=== PATIENT | female | born 1960 | race Caucasian/White ===

== ENCOUNTER 2017-06-23 13:28 | Inpatient (IN) | payer OTHER ==
--- NOTE | 2017-06-23 13:51 | Emergency Department Report ---
Chief Complaint: Hyperglycemia Stated Complaint: INFECTED FOOT/HYPERTENSION - HPI History of Present Illness: This is a 56-year-old female nontoxic, well nourished in appearance, no acute signs of distress presents to the ED with c/o of right foot pain and fourth phalanx pain. Patient states has history of diabetes uncontrolled. Patient with her primary care doctor sent her to emergency room for possible admission. Patient denies any numbness, tingling, fever, chills, nausea, vomiting, chest pain shortness of breath. - Exam Vital Signs: Vital Signs 06/23/17 13:34 Temperature 97.5 F L Pulse Rate 102 H Respiratory 18 Rate Blood Pressure 197/109 O2 Sat by Pulse 98 Oximetry Physical Exam: GENERAL: The patient is a well-developed, well-nourished female in no apparent distress. Patient is alert and acting appropriately for age. Alert and oriented 3, no apparent distress, normal gait, atraumatic. EXTREMITIES: Without any cyanosis, clubbing, rash, lesions or edema. Peripheral pulses are diminished. Capillary refill less than 2 seconds. Full range of motion bilaterally. Erythema with swelling of right foot. Phalanx swelling, induration, fluctuance, with discoloration. MSE screening note: Focused history and physical exam performed. Due to findings the following was ordered: 1- This initial assessment/diagnostic orders/clinical plan/ treatment(s) is/are subject to change based on pt's health status, clinical progression and re- assessment by fellow clinical providers in the ED. Further treatment and workup at subsequent clinical provers discretion. Patient/guardians urged not to elope from ED as their condition may be serious if not clinically assessed and managed. 2-CBC, CMP, UA, LACTIC ACID, CK, LONI PH ED Disposition for MSE Condition: Stable
[2017-06-23 14:40] LABS: Hematocrit 39.2 % (30.3-42.9); Hemoglobin 12.8 gm/dl (10.1-14.3); Mean Corpuscular Hemoglobin 27 pg (28-32); Mean Corpuscular Volume 82 fl (79-97); Red Blood Count 4.81 M/mm3 (3.65-5.03); White Blood Count 17.7 K/mm3 (4.5-11.0)
[2017-06-23 14:41] LABS: Basophils % (Auto) 1.2 % (0.0-1.8); Eosinophils % (Auto) 0.7 % (0.0-4.3); Mean Corpuscular HGB Conc 33 % (30-34); Platelet Count 596 K/mm3 (140-440); Red Cell Distribution Width 14.8 % (13.2-15.2)
--- NOTE | 2017-06-23 15:21 | XRay Report ---
X-RAY LEFT FOOT THREE VIEWS: 06/23/17 13:52:00 CLINICAL: Pain and swelling. FINDINGS: No fracture or dislocation. The joint spaces are normal. A prominent plantar calcaneal spur. Moderate soft tissue swelling of the forefoot and midfoot. No soft tissue air or foreign body. Vascular calcifications. IMPRESSION: Nonspecific soft tissue swelling. No fracture or dislocation. No signs of arthritis. Plantar enthesopathy.
[2017-06-23 17:44] LABS: Albumin 2.8 g/dL (3.9-5); Albumin/Globulin Ratio 0.5 %; Alkaline Phosphatase 140 units/L (35-129); BUN/Creatinine Ratio 38; Blood Urea Nitrogen 23 mg/dL (7-17); Calcium 9.2 mg/dL (8.4-10.2); Carbon Dioxide 15 mmol/L (22-30); Chloride 85.9 mmol/L (98-107); Creatine Kinase 88 units/L (30-135); Glucose 422 mg/dL (65-100); Sodium 123 mmol/L (137-145); Total Protein 8.1 g/dL (6.3-8.2)
[2017-06-23 17:58] LABS: Alanine Aminotransferase 16 units/L (7-56); Anion Gap 27 mmol/L
[2017-06-23] MEDS ORDERED: ZOSYN/NS 4.5GM/100ML 4.5 GM/100 ML VIAL IV ONE (21:53)
[2017-06-23] MEDS ORDERED: NACL 0.9% 1000 ML IV ONE (21:53)
[2017-06-23] MEDS ORDERED: VANCOMYCIN VIAL IV ONE (21:54)
[2017-06-23] MEDS ORDERED: D50W (25GM) Syringe IV PRN ×3 (21:55→23:54)
--- NOTE | 2017-06-23 21:56 | Emergency Department Report ---
ED General Adult HPI - General Chief complaint: Hyperglycemia Stated complaint: INFECTED FOOT/HYPERTENSION Time Seen by Provider: 06/23/17 21:46 Source: patient, family, RN notes reviewed Mode of arrival: Stretcher Limitations: No Limitations, Physical Limitation - History of Present Illness Initial comments: This is a 56-year-old female who is previously unknown to this provider. Her primary care doctor is Jose David Montanez. Patient has a past medical history of diabetes. She is sent to the ER by her primary care doctor out of concern for hyperglycemia, possible diabetic ketoacidosis, and left lower extremity for infection. Patient reports discoloration and pain in her left foot for the past 2 days. She also describes swelling, chills, generalized weakness. Her symptoms are constant. They do not have exacerbating or relieving factors. The patient denies headache , neck pain, chest pain, abdominal pain, shortness of breath, urinary symptoms. She denies trauma. The pain is sharp. It increases with palpation and range of motion. It decreases with rest. It does not radiate anywhere. -: Gradual, days(s) Location: left, lower extremity Quality: aching Consistency: intermittent Improves with: rest Worsens with: movement Associated Symptoms: fever/chills, malaise, weakness - Related Data Home Medications Medication Instructions Recorded Confirmed Last Taken Enalapril Maleate [Vasotec] 10 mg PO QDAY 10/15/13 06/23/17 10/15/13 Gabapentin 300 mg PO QHS 10/15/13 06/23/17 10/15/13 glipiZIDE [Glucotrol] 5 mg PO DAILY 10/15/13 06/23/17 10/15/13 metFORMIN [Glucophage] 500 mg PO BID 10/15/13 06/23/17 10/15/13 Escitalopram Oxalate [Lexapro] 5 mg PO QDAY 06/23/17 06/23/17 Unknown Allergies Allergy/AdvReac Type Severity Reaction Status Date / Time No Known Allergies Allergy Verified 06/23/17 13:34 ED Review of Systems ROS: Stated complaint: INFECTED FOOT/HYPERTENSION Other details as noted in HPI Constitutional: chills, malaise, weakness Eyes: denies: eye discharge ENT: denies: epistaxis Respiratory: denies: cough Cardiovascular: denies: chest pain Gastrointestinal: denies: abdominal pain Genitourinary: denies: dysuria Musculoskeletal: arthralgia, myalgia Skin: lesions Neurological: weakness ED Past Medical Hx - Past Medical History Hx Hypertension: Yes Hx Diabetes: Yes - Surgical History Additional Surgical History: - Social History Smoking Status: Never Smoker Substance Use Type: None - Medications Home Medications: Home Medications Medication Instructions Recorded Confirmed Last Taken Type Enalapril Maleate [Vasotec] 10 mg PO QDAY 10/15/13 06/23/17 10/15/13 History Gabapentin 300 mg PO QHS 10/15/13 06/23/17 10/15/13 History glipiZIDE [Glucotrol] 5 mg PO DAILY 10/15/13 06/23/17 10/15/13 History metFORMIN [Glucophage] 500 mg PO BID 10/15/13 06/23/17 10/15/13 History Escitalopram Oxalate [Lexapro] 5 mg PO QDAY 06/23/17 06/23/17 Unknown History ED Physical Exam - General Limitations: No Limitations General appearance: alert, in no apparent distress - Head Head exam: Present: atraumatic, normocephalic - Eye Eye exam: Present: normal appearance, EOMI. Absent: nystagmus - ENT ENT exam: Present: normal exam, normal orophraynx, mucous membranes moist, normal external ear exam - Neck Neck exam: Present: normal inspection, full ROM - Respiratory Respiratory exam: Present: normal lung sounds bilaterally. Absent: respiratory distress - Cardiovascular Cardiovascular Exam: Present: normal rhythm, tachycardia, normal heart sounds. Absent: systolic murmur, diastolic murmur, rubs, gallop - GI/Abdominal GI/Abdominal exam: Present: soft, normal bowel sounds. Absent: distended, tenderness, guarding, rebound, rigid, pulsatile mass - Extremities Exam Extremities exam: Present: full ROM, tenderness, normal capillary refill, pedal edema, calf tenderness, other (there is discoloration to the left dorsal and distal aspects of the left foot, the fourth toe appears to be discolored and necrotic, compartments are soft, there is erythema and warmth to the left lower extremity, there is no pain with passive range of motion of the great toe. The pelvis is stable. There is no joint instability. Discoloration noted on the bilateral lower extremities, more prominent in the left foot.) - Back Exam Back exam: Present: normal inspection, full ROM. Absent: paraspinal tenderness , vertebral tenderness - Neurological Exam Neurological exam: Present: alert, other (Extraocular movements intact. Tongue midline. No facial droop. Facial sensation intact to light touch in the V1, V2 , V3 distribution bilaterally. 5 and 5 strength in 4 extremities.. Sensation is intact to light touch in 4 extremities.). Absent: motor sensory deficit - Psychiatric Psychiatric exam: Present: anxious - Skin Skin exam: Present: warm, rash, erythema ED Course Vital Signs 06/23/17 06/23/17 06/23/17 13:34 23:00 23:25 Temperature 97.5 F L 97.6 F Pulse Rate 102 H Respiratory 18 Rate Blood Pressure 197/109 156/88 O2 Sat by Pulse 98 97 Oximetry 06/23/17 06/24/17 06/24/17 23:46 00:36 01:00 Temperature Pulse Rate 88 89 Respiratory 20 18 17 Rate Blood Pressure 108/57 O2 Sat by Pulse 97 96 Oximetry 06/24/17 02:00 Temperature Pulse Rate 88 Respiratory 14 Rate Blood Pressure 97/63 O2 Sat by Pulse 92 Oximetry - Reevaluation(s) Reevaluation #1: 06/23/17 23:51 Repeat laboratory studies demonstrated resolution of anion gap acidosis. Case presented to Dr. Sanchez who accepts the patient to the medical service. ED Medical Decision Making - Lab Data Result diagrams: 06/23/17 13:59 06/24/17 04:28 Vital Signs 06/23/17 13:34 Temperature 97.5 F L Pulse Rate 102 H Respiratory 18 Rate Blood Pressure 197/109 O2 Sat by Pulse 98 Oximetry Lab Results 06/23/17 06/23/17 06/23/17 Range/Units 13:36 13:59 13:59 WBC 17.7 H (4.5-11.0) K/mm3 RBC 4.81 (3.65-5.03) M/mm3 Hgb 12.8 (10.1-14.3) gm/dl Hct 39.2 (30.3-42.9) % MCV 82 (79-97) fl MCH 27 L (28-32) pg MCHC 33 (30-34) % RDW 14.8 (13.2-15.2) % Plt Count 596 H (140-440) K/mm3 Lymph % (Auto) 14.0 (13.4-35.0) % [place] % (Auto) 4.5 (0.0-7.3) % Eos % (Auto) 0.7 (0.0-4.3) % Baso % (Auto) 1.2 (0.0-1.8) % Lymph # 2.5 (1.2-5.4) K/mm3 [place] # 0.8 (0.0-0.8) K/mm3 Eos # 0.1 (0.0-0.4) K/mm3 Baso # 0.2 H (0.0-0.1) K/mm3 Seg Neutrophils % 79.6 H (40.0-70.0) % Seg Neutrophils # 14.1 H (1.8-7.7) K/mm3 VBG pH (7.320-7.420) Sodium 123 L (137-145) mmol/L Potassium 5.0 (3.6-5.0) mmol/L Chloride 85.9 L (98-107) mmol/L Carbon Dioxide 15 L (22-30) mmol/L Anion Gap 27 mmol/L BUN 23 H (7-17) mg/dL Creatinine 0.6 L (0.7-1.2) mg/dL Estimated GFR > 60 ml/min BUN/Creatinine Ratio 38 % Glucose 422 H (65-100) mg/dL POC Glucose 412 H (70-105) Lactic Acid (0.7-2.0) mmol/L Calcium 9.2 (8.4-10.2) mg/dL Total Bilirubin 0.20 (0.1-1.2) mg/dL AST 17 (5-40) units/L ALT 16 (7-56) units/L Alkaline Phosphatase 140 H (35-129) units/L Total Creatine Kinase 88 (30-135) units/L Total Protein 8.1 (6.3-8.2) g/dL Albumin 2.8 L (3.9-5) g/dL Albumin/Globulin Ratio 0.5 % 06/23/17 06/23/17 Range/Units 13:59 13:59 WBC (4.5-11.0) K/mm3 RBC (3.65-5.03) M/mm3 Hgb (10.1-14.3) gm/dl Hct (30.3-42.9) % MCV (79-97) fl MCH (28-32) pg MCHC (30-34) % RDW (13.2-15.2) % Plt Count (140-440) K/mm3 Lymph % (Auto) (13.4-35.0) % [place] % (Auto) (0.0-7.3) % Eos % (Auto) (0.0-4.3) % Baso % (Auto) (0.0-1.8) % Lymph # (1.2-5.4) K/mm3 [place] # (0.0-0.8) K/mm3 Eos # (0.0-0.4) K/mm3 Baso # (0.0-0.1) K/mm3 Seg Neutrophils % (40.0-70.0) % Seg Neutrophils # (1.8-7.7) K/mm3 VBG pH 7.338 (7.320-7.420) Sodium (137-145) mmol/L Potassium (3.6-5.0) mmol/L Chloride (98-107) mmol/L Carbon Dioxide (22-30) mmol/L Anion Gap mmol/L BUN (7-17) mg/dL Creatinine (0.7-1.2) mg/dL Estimated GFR ml/min BUN/Creatinine Ratio % Glucose (65-100) mg/dL POC Glucose (70-105) Lactic Acid 1.80 (0.7-2.0) mmol/L Calcium (8.4-10.2) mg/dL Total Bilirubin (0.1-1.2) mg/dL AST (5-40) units/L ALT (7-56) units/L Alkaline Phosphatase (35-129) units/L Total Creatine Kinase (30-135) units/L Total Protein (6.3-8.2) g/dL Albumin (3.9-5) g/dL Albumin/Globulin Ratio % - Radiology Data Radiology results: report reviewed, image reviewed X-ray of the foot negative for acute disease, soft tissue swelling is noted. X-ray of the tibia negative for acute disease. Soft tissue swelling is noted. - Medical Decision Making Differential diagnosis, including but not limited to: Cellulitis, osteomyelitis , myositis, diabetic ketoacidosis, hyperosmolar hyperglycemia Assessment and plan: 56-year-old female with tachycardia, leukocytosis, hyperglycemia, anion gap, suggestive of diabetic ketoacidosis, with superimposed soft tissue cellulitis. The patient is afebrile with reassuring vital signs, with the exception of hypertension and tachycardia. Given concern for active soft tissue infection, I will withhold antihypertensives at this time. Patient will be treated along with diabetic ketoacidosis pathway, with IV fluids, insulin push, insulin drip. She'll be treated along with sepsis pathway with broad-spectrum antibiotics, blood cultures, lactic acid, timeout to [place], and an appropriate 30 mL/kg bolus of IV fluids. The patient has equal pulses in the bilateral lower extremities, there is no obvious gas on her x-ray of her left foot, therefore I do not believe the patient requires an emergent surgical consult this evening. She will require medical admission for the aforementioned therapies were outlined, the hospital physician has been paged to arrange admission. Critical Care Time: Yes Critical care time in (mins) excluding proc time.: 35 Critical care attestation.: If time is entered above; I have spent that time in minutes in the direct care of this critically ill patient, excluding procedure time. ED Disposition Clinical Impression: Sepsis affecting skin, DKA (diabetic ketoacidoses) Disposition: OP ADMIT IP TO THIS HOSP Is pt being admited?: Yes Condition: Good
[2017-06-23] MEDS ORDERED: SODIUM CHLORIDE FLUSH SYRINGE 10 ML IV PRN (22:00)
[2017-06-23] MEDS ORDERED: D5W/0.45% NACL/KCL 20 MEQ 20 MEQ/1,000 ML BAG IV SCH (22:00)
[2017-06-23] MEDS ORDERED: VANCOMYCIN PHARMACY TO DOSE IV SCH (22:00)
[2017-06-23] MEDS ORDERED: NovoLIN R 100 UNITS in NACL 0.9% 99 ML IV SCH ×2 (22:00→23:45)
[2017-06-23] MEDS ORDERED: VANCOMYCIN/NS 1 GM/250 ML 1 GM/250 ML BAG IV ONE (22:30)
[2017-06-23 22:31] LABS: BUN/Creatinine Ratio 33; Blood Urea Nitrogen 23 mg/dL (7-17); Calcium 9.2 mg/dL (8.4-10.2); Carbon Dioxide 25 mmol/L (22-30); Chloride 90.6 mmol/L (98-107); Glucose 352 mg/dL (65-100); Potassium 4.6 mmol/L (3.6-5.0); Sodium 129 mmol/L (137-145)
[2017-06-23 22:32] LABS: Phosphorous 3.9 mg/dL (2.5-4.5)
[2017-06-23 22:35] LABS: C-Reactive Protein 9.2 mg/dL (0.00-1.30)
[2017-06-23 22:41] LABS: Anion Gap 18 mmol/L
[2017-06-23] MEDS ORDERED: MOTRIN PO ONE (23:35)
[2017-06-23] MEDS ORDERED: TYLENOL PO ONE (23:35)
--- NOTE | 2017-06-23 23:53 | History and Physical Report ---
History of Present Illness Chief complaint: My diabetes is high, and my foot is infected History of present illness: 56 YO Female with HTN, DM presents to ED for evaluation. Pt states that she has experienced very high blood glucose levels for the past 3 days. Pt also reports discoloration and pain in her left foot for the past 2 days. Pt also acknowledges Left foot swelling, redness, and pain with weight bearing, subjective fever, chills, generalized weakness. Pt was seen by her PCP and recommended that she present to ED for evaluation. The patient denies CP, palppitations, Trauma, headache, neck pain, abdominal pain, shortness of breath , hematuria, skin rashes, recent ill contacts. Pt seen and evaluated in ED and found to have DKA, with metabolic anion gap acidosis, as well a sepsis secondary to Left foot cellulitis. Pt treated with insulin therapy as well as sepsis protocol, and admitted to ICU. Pt symptoms improved with therapy, and anion gap normalized with therapy. Pt subsequently downgraded from ICU to medical floor. Past History Past Medical History: diabetes, hypertension Past Surgical History: Social history: , lives with family. denies: smoking, alcohol abuse, prescription drug abuse, IV drug use Family history: diabetes, hypertension Medications and Allergies Allergies Allergy/AdvReac Type Severity Reaction Status Date / Time No Known Allergies Allergy Verified 06/23/17 13:34 Home Medications Medication Instructions Recorded Confirmed Last Taken Type Enalapril Maleate [Vasotec] 10 mg PO QDAY 10/15/13 06/23/17 10/15/13 History Gabapentin 300 mg PO QHS 10/15/13 06/23/17 10/15/13 History glipiZIDE [Glucotrol] 5 mg PO DAILY 10/15/13 06/23/17 10/15/13 History metFORMIN [Glucophage] 500 mg PO BID 10/15/13 06/23/17 10/15/13 History Escitalopram Oxalate [Lexapro] 5 mg PO QDAY 06/23/17 06/23/17 Unknown History Active Meds: Active Medications Vancomycin HCl (Vancomycin/Ns 1 Gm/250 Ml) 1 gm in 250 mls @ 167.007 mls/hr IV ONCE.ED ONE Stop: 06/23/17 23:59 Last Admin: 06/23/17 23:20 Dose: 167.007 mls/hr Vancomycin HCl (Vancomycin Pharmacy To Dose) 1 each IV PKCONSULT SYLVIA PRN Reason: Protocol Review of Systems Constitutional: fever, chills, no weight loss, no weight gain, no sweats, no night sweats Ears, nose, mouth and throat: no ear pain, no ear discharge, no tinnitis, no decreased hearing, no nose pain, no nasal congestion, no nasal discharge Breasts: no change in shape, no swelling, no mass Cardiovascular: no chest pain, no orthopnea, no palpitations, no rapid/ irregular heart beat, no edema, no syncope, no lightheadedness Respiratory: no cough, no cough with sputum, no excessive sputum, no hemoptysis , no shortness of breath, no dyspnea on exertion Gastrointestinal: no abdominal pain, no nausea, no vomiting, no diarrhea, no constipation, no change in bowel habits Genitourinary Female: no pelvic pain, no flank pain, no menorrhagia, no dysuria , no urinary frequency, no urgency Rectal: no pain, no incontinence, no bleeding Musculoskeletal: no neck stiffness, no neck pain, no shooting arm pain, no arm numbness/tingling, no low back pain, no shooting leg pain, no leg numbness/ tingling Integumentary: no rash, no pruritis, no redness, no sores, no wounds, no jaundice Neurological: no head injury, no transient paralysis, no paralysis, no weakness , no parathesias, no numbness, no tingling Psychiatric: no anxiety, no memory loss, no change in sleep habits, no sleep disturbances, no insomnia, no hypersomnia, no change in appetite, no change in libido Endocrine: no cold intolerance, no heat intolerance, no polyphagia, no excessive thirst, no polydipsia, no polyuria, no nocturia Hematologic/Lymphatic: no easy bruising, no easy bleeding Allergic/Immunologic: no urticaria, no allergic rhinitis, no wheezing Exam - Constitutional Vitals: Temp Pulse Resp BP Pulse Ox 97.6 F 102 H 20 156/88 97 06/23/17 23:25 06/23/17 13:34 06/23/17 23:46 06/23/17 23:00 06/23/17 23:00 General appearance: Present: mild distress - EENT Eyes: Present: PERRL ENT: hearing intact, clear oral mucosa - Neck Neck: Present: supple, normal ROM - Respiratory Respiratory effort: normal Respiratory: bilateral: CTA - Cardiovascular Heart Sounds: Present: S1 & S2. Absent: rub, click - Extremities Extremities: No edema, abnormal Extremity abnormal: edema, cyanosis, ulceration, erythema, tenderness (Left foot ) Peripheral Pulses: within normal limits - Abdominal General gastrointestinal: Present: soft, non-tender, non-distended, normal bowel sounds Female genitourinary: Present: normal - Integumentary Integumentary: Present: clear, warm, dry - Musculoskeletal Musculoskeletal: gait normal, strength equal bilaterally - Psychiatric Psychiatric: appropriate mood/affect, intact judgment & insight - Neurologic Neurologic: CNII-XII intact, moves all extremities Results - Labs CBC & Chem 7: 06/23/17 13:59 06/23/17 21:59 Labs: Abnormal lab results 06/23/17 06/23/17 06/23/17 Range/Units 13:36 13:59 13:59 WBC 17.7 H (4.5-11.0) K/mm3 MCH 27 L (28-32) pg Plt Count 596 H (140-440) K/mm3 Baso # 0.2 H (0.0-0.1) K/mm3 Seg Neutrophils % 79.6 H (40.0-70.0) % Seg Neutrophils # 14.1 H (1.8-7.7) K/mm3 Sodium 123 L (137-145) mmol/L Chloride 85.9 L (98-107) mmol/L Carbon Dioxide 15 L (22-30) mmol/L BUN 23 H (7-17) mg/dL Creatinine 0.6 L (0.7-1.2) mg/dL Glucose 422 H (65-100) mg/dL POC Glucose 412 H (70-105) Alkaline Phosphatase 140 H (35-129) units/L C-Reactive Protein (0.00-1.30) mg/dL Albumin 2.8 L (3.9-5) g/dL 06/23/17 06/23/17 Range/Units 21:59 21:59 WBC (4.5-11.0) K/mm3 MCH (28-32) pg Plt Count (140-440) K/mm3 Baso # (0.0-0.1) K/mm3 Seg Neutrophils % (40.0-70.0) % Seg Neutrophils # (1.8-7.7) K/mm3 Sodium 129 L (137-145) mmol/L Chloride 90.6 L (98-107) mmol/L Carbon Dioxide (22-30) mmol/L BUN 23 H (7-17) mg/dL Creatinine (0.7-1.2) mg/dL Glucose 352 H (65-100) mg/dL POC Glucose (70-105) Alkaline Phosphatase (35-129) units/L C-Reactive Protein 9.20 H (0.00-1.30) mg/dL Albumin (3.9-5) g/dL Assessment and Plan - Patient Problems (1) Sepsis Current Visit: Yes Status: Acute Qualifiers: Sepsis type: sepsis due to unspecified organism Qualified Code(s): A41.9 - Sepsis, unspecified organism Plan to address problem: Sepsis protocol: IV abx, IVF, blood cultures, urinalysis, wound culture, monitor uop q shift, serial lactic acid levels. (2) Accelerated hypertension Current Visit: Yes Status: Acute Plan to address problem: monitor bp q shift, resume medical management, IV hydralazine for systolic above 155. (3) Cellulitis of left foot Current Visit: Yes Status: Acute Plan to address problem: IV abx, IVF, supportive care. (4) Metabolic acidosis Current Visit: Yes Status: Acute Plan to address problem: Treat sepsis, supportive care, IVF, (5) DKA (diabetic ketoacidoses) Current Visit: Yes Status: Acute Plan to address problem: DKA protocol: Insulin, ADA diet, accu check, treat cellulitis, monitor anion gap , serial bmp, (6) DVT prophylaxis Current Visit: Yes Status: Acute
[2017-06-23] MEDS ORDERED: DULCOLAX PR PRN (23:54)
[2017-06-23] MEDS ORDERED: ALUM-MAG HYDROX-SIMETH 200-200-20MG/5ML PO PRN (23:54)
[2017-06-23] MEDS ORDERED: NovoLIN R 100 UNITS in NACL 0.9% 99 ML IV ONE (23:54)
[2017-06-23] MEDS ORDERED: DILAUDID IV PRN (23:54)
[2017-06-23] MEDS ORDERED: PROVENTIL IH PRN (23:54)
[2017-06-23] MEDS ORDERED: MILK OF MAGNESIA PO PRN (23:54)
--- NOTE | 2017-06-24 00:11 | XRay Report ---
FINAL REPORT EXAM: XR TIBIA FIBULA 2V LT HISTORY: left foot pain TECHNIQUE: AP and lateral views of the left tibia-fibula were obtained. FINDINGS: There are no skeletal or soft tissue abnormalities. IMPRESSION: Within normal limits.
[2017-06-24 01:14] LABS: Bacteria,Urine 4+ /HPF (Negative); Bilirubin,Urine NEG (Negative); Blood,Urine SM (Negative); Ketones,Urine NEG (Negative); Leukocyte Esterase,Urine NEG (Negative); Mucus,Urine FEW /HPF; Nitrite,Urine NEG (Negative); Urobilinogen,Urine < 2.0 mg/dL (<2.0)
[2017-06-24 01:21] LABS: Protein,Urine >500 mg/dL (Negative)
[2017-06-24 01:40] LABS: Anion Gap 15 mmol/L; BUN/Creatinine Ratio 38; Blood Urea Nitrogen 19 mg/dL (7-17); Calcium 7.7 mg/dL (8.4-10.2); Carbon Dioxide 22 mmol/L (22-30); Chloride 99.2 mmol/L (98-107); Glucose 184 mg/dL (65-100); Potassium 3.3 mmol/L (3.6-5.0); Sodium 133 mmol/L (137-145)
[2017-06-24 01:41] LABS: Anion Gap 16 mmol/L; BUN/Creatinine Ratio 32; Blood Urea Nitrogen 19 mg/dL (7-17); Calcium 7.7 mg/dL (8.4-10.2); Carbon Dioxide 22 mmol/L (22-30); Chloride 99.6 mmol/L (98-107); Glucose 182 mg/dL (65-100); Potassium 3.3 mmol/L (3.6-5.0); Sodium 134 mmol/L (137-145)
[2017-06-24 05:27] LABS: Anion Gap 18 mmol/L; BUN/Creatinine Ratio 32; Blood Urea Nitrogen 19 mg/dL (7-17); Calcium 8.1 mg/dL (8.4-10.2); Carbon Dioxide 22 mmol/L (22-30); Chloride 98.8 mmol/L (98-107); Glucose 161 mg/dL (65-100); Potassium 4.1 mmol/L (3.6-5.0); Sodium 135 mmol/L (137-145)
[2017-06-24] MEDS: ZOSYN/NS 4.5GM/100ML 4.5 GM/100 ML VIAL IV SCH ×3 (08:00→22:57)
--- NOTE | 2017-06-24 08:18 | Progress Note ---
Assessment and Plan Assessment and plan: 56 YO Female with HTN, DM presents to ED for evaluation. She has a history of picking off, plucking of her toenails. She's had previous infections in her right foot., She admits that she stopped of all the toenails in her left foot. And over the course of 2 weeks he developed swelling redness in her left foot Sepsis Sepsis protocol: IV abx, IVF, blood cultures, urinalysis, wound culture, monitor uop q shift, serial lactic acid levels. Accelerated hypertension monitor bp q shift, resume medical management, IV hydralazine for systolic above 155. Cellulitis of left foot IV abx, IVF, supportive care. Metabolic acidosis Treat sepsis, supportive care, IVF, DKA (diabetic ketoacidoses) DKA protocol: Insulin, ADA diet, accu check, treat cellulitis, monitor anion gap , serial bmp, DVT prophylaxis Current Visit: Yes Status: Acute History Interval history: She states that she has minimal pain in her left foot because she has poor sensation in it. Admits that she picked off all her toenails as a bad habit. Left foot is still swollen, the swelling is decreasing, redness is decreasing. There is still spell small coming from the left fourth toe Review of systems Constitutional: No fevers, no malaise, no joint pains CVS: No chest pain, no orthopnea, no dyspnea on exertion, no pedal edema GI: No abdominal pain, no diarrhea, no vomiting, no constipation Respiratory: No shortness of breath, no wheezing, no coughing Hospitalist Physical - Physical exam Narrative exam: General.: Appears well, no distress, nontoxic HEENT: Moist mucous membranes, extraocular muscles intact, no lymphadenopathy Neck: supple Cardiac: S1-S2 heard Lungs: clear to auscultation bilaterally Abdomen: soft , nontender, nondistended, bowel sounds positive Extremities: left foot redness and swelling, left 4th toe is kapoor, foul smelling , and appears gangrenous Skin: no rash or lesions Neurologic: no gross focal deficits Psych: appropriate behavior, appropriate mood, corporative, judgment intact - Constitutional Vitals: Temp Pulse Resp BP Pulse Ox 97.6 F 88 14 97/63 92 06/23/17 23:25 06/24/17 02:00 06/24/17 02:00 06/24/17 02:00 06/24/17 02:00 General appearance: Present: mild distress Results - Labs CBC & Chem 7: 06/26/17 18:35 06/25/17 01:24 Labs: Laboratory Last Values WBC 17.7 K/mm3 (4.5-11.0) H 06/23/17 13:59 RBC 4.81 M/mm3 (3.65-5.03) 06/23/17 13:59 Hgb 12.8 gm/dl (10.1-14.3) 06/23/17 13:59 Hct 39.2 % (30.3-42.9) 06/23/17 13:59 MCV 82 fl (79-97) 06/23/17 13:59 MCH 27 pg (28-32) L 06/23/17 13:59 MCHC 33 % (30-34) 06/23/17 13:59 RDW 14.8 % (13.2-15.2) 06/23/17 13:59 Plt Count 596 K/mm3 (140-440) H 06/23/17 13:59 Lymph % (Auto) 14.0 % (13.4-35.0) 06/23/17 13:59 [place] % (Auto) 4.5 % (0.0-7.3) 06/23/17 13:59 Eos % (Auto) 0.7 % (0.0-4.3) 06/23/17 13:59 Baso % (Auto) 1.2 % (0.0-1.8) 06/23/17 13:59 Lymph # 2.5 K/mm3 (1.2-5.4) 06/23/17 13:59 [place] # 0.8 K/mm3 (0.0-0.8) 06/23/17 13:59 Eos # 0.1 K/mm3 (0.0-0.4) 06/23/17 13:59 Baso # 0.2 K/mm3 (0.0-0.1) H 06/23/17 13:59 Seg Neutrophils % 79.6 % (40.0-70.0) H 06/23/17 13:59 Seg Neutrophils # 14.1 K/mm3 (1.8-7.7) H 06/23/17 13:59 ESR 55 mm/Hr (0-20) 06/23/17 21:59 VBG pH 7.338 (7.320-7.420) 06/23/17 13:59 Sodium 135 mmol/L (137-145) L 06/24/17 04:28 Potassium 4.1 mmol/L (3.6-5.0) D 06/24/17 04:28 Chloride 98.8 mmol/L (98-107) 06/24/17 04:28 Carbon Dioxide 22 mmol/L (22-30) 06/24/17 04:28 Anion Gap 18 mmol/L 06/24/17 04:28 BUN 19 mg/dL (7-17) H 06/24/17 04:28 Creatinine 0.6 mg/dL (0.7-1.2) L 06/24/17 04:28 Estimated GFR > 60 ml/min 06/24/17 04:28 BUN/Creatinine Ratio 32 % 06/24/17 04:28 Glucose 161 mg/dL (65-100) H 06/24/17 04:28 POC Glucose 148 (70-105) H 06/24/17 01:36 Lactic Acid 0.70 mmol/L (0.7-2.0) 06/24/17 04:28 Calcium 8.1 mg/dL (8.4-10.2) L 06/24/17 04:28 Phosphorus 3.20 mg/dL (2.5-4.5) D 06/24/17 04:28 Magnesium 1.90 mg/dL (1.7-2.3) 06/24/17 04:28 Total Bilirubin 0.20 mg/dL (0.1-1.2) 06/23/17 13:59 AST 17 units/L (5-40) 06/23/17 13:59 ALT 16 units/L (7-56) 06/23/17 13:59 Alkaline Phosphatase 140 units/L (35-129) H 06/23/17 13:59 Total Creatine Kinase 56 units/L (30-135) 06/23/17 21:59 C-Reactive Protein 9.20 mg/dL (0.00-1.30) H 06/23/17 21:59 Total Protein 8.1 g/dL (6.3-8.2) 06/23/17 13:59 Albumin 2.8 g/dL (3.9-5) L 06/23/17 13:59 Albumin/Globulin Ratio 0.5 % 06/23/17 13:59 Urine Color Yellow (Yellow) 06/23/17 23:59 Urine Turbidity Clear (Clear) 06/23/17 23:59 Urine pH 5.0 (5.0-7.0) 06/23/17 23:59 Ur Specific [place] 1.023 (1.003-1.030) 06/23/17 23:59 Urine Protein >500 mg/dL (Negative) 06/23/17 23:59 Urine Glucose (UA) >=500 mg/dL (Negative) 06/23/17 23:59 Urine Ketones Neg mg/dL (Negative) 06/23/17 23:59 Urine Blood Sm (Negative) 06/23/17 23:59 Urine Nitrite Neg (Negative) 06/23/17 23:59 Urine Bilirubin Neg (Negative) 06/23/17 23:59 Urine Urobilinogen < 2.0 mg/dL (<2.0) 06/23/17 23:59 Ur Leukocyte Esterase Neg (Negative) 06/23/17 23:59 Urine WBC (Auto) 5.0 /HPF (0.0-6.0) 06/23/17 23:59 Urine RBC (Auto) 2.0 /HPF (0.0-6.0) 06/23/17 23:59 U Epithel Cells (Auto) 3.0 /HPF (0-13.0) 06/23/17 23:59 Urine Bacteria (Auto) 4+ /HPF (Negative) 06/23/17 23:59 Urine Mucus Few /HPF 06/23/17 23:59
[2017-06-24 08:42] LABS: Anion Gap 17 mmol/L; BUN/Creatinine Ratio 32; Blood Urea Nitrogen 19 mg/dL (7-17); Calcium 7.9 mg/dL (8.4-10.2); Carbon Dioxide 23 mmol/L (22-30); Chloride 102.4 mmol/L (98-107); Glucose 168 mg/dL (65-100); Potassium 4.1 mmol/L (3.6-5.0); Sodium 138 mmol/L (137-145)
[2017-06-24] MEDS: VANCOMYCIN/NS 1 GM/250 ML 1 GM/250 ML BAG IV SCH (10:50)
--- NOTE | 2017-06-24 13:29 | Consultation ---
History of Present Illness - Reason for Consult Consult date: 06/24/17 diabetic foot infection Requesting physician: COOKIE PLASCENCIA - History of Present Illness 55 years old female with history of poorly controlled diabetes, admitted on due to 2 day history of left foot and forefoot edema, erythema and tenderness. Patient reports she has developed an ulcer/callus on the 4th toe which she manipulated with her fingernails. It then became erythematous and draining purulence. Patient reports subjective fever, chills, weakness and malaise during the last 48 hours. Her glucose at home has been poorly controlled at 500s. In the emergency room, initial temperature was 97.5, heart rate 102, respiration 18, blood pressure 197/109. WBC 17.3. Creatinine 0.6 . Glucose 422. Urinalysis was negative. X-ray of the foot showed soft tissue swelling but no fracture no osteomyelitis. Microbiology: Blood cultures: 06/23 ngtd Urine cultures: Respiratory cultures: Wound cultures: Current Antimicrobials: Zosyn Vancomycin Previous Antimicrobials: Past History Past Medical History: diabetes, hypertension Past Surgical History: Social history: , lives with family. denies: smoking, alcohol abuse, prescription drug abuse, IV drug use Family history: diabetes, hypertension Medications and Allergies Allergies Allergy/AdvReac Type Severity Reaction Status Date / Time No Known Allergies Allergy Verified 06/23/17 13:34 Home Medications Medication Instructions Recorded Confirmed Last Taken Type Enalapril Maleate [Vasotec] 10 mg PO QDAY 10/15/13 06/23/17 10/15/13 History Gabapentin 300 mg PO QHS 10/15/13 06/23/17 10/15/13 History glipiZIDE [Glucotrol] 5 mg PO DAILY 10/15/13 06/23/17 10/15/13 History metFORMIN [Glucophage] 500 mg PO BID 10/15/13 06/23/17 10/15/13 History Escitalopram Oxalate [Lexapro] 5 mg PO QDAY 06/23/17 06/23/17 Unknown History Active Meds: Active Medications Al Hydrox/Mg Hydrox/Simethicone (Alum-Mag Hydrox-Simeth [phone]/5ml) 30 ml PO Q4H PRN PRN Reason: Indigestion Albuterol (Proventil) 2.5 mg IH Q3HRT PRN PRN Reason: Shortness Of Breath Bisacodyl (Dulcolax) 10 mg CO QDAY PRN PRN Reason: constipation unrelieved by MOM Dextrose (D50w (25gm) Syringe) 0 ml IV PRN PRN PRN Reason: Hypoglycemia Hydromorphone HCl (Dilaudid) 0.25 mg IV Q4H PRN PRN Reason: Pain, Moderate (4-6) Piperacillin Sod/Tazobactam Sod (Zosyn/Ns 4.5gm/100ml) 4.5 gm in 100 mls @ 200 mls/hr IV Q8HR SYLVIA PRN Reason: Protocol Last Admin: 06/24/17 08:00 Dose: 200 mls/hr Vancomycin HCl (Vancomycin/Ns 1 Gm/250 Ml) 1 gm in 250 mls @ 166.667 mls/hr IV Q12H [facility] Last Admin: 06/24/17 10:50 Dose: 166.667 mls/hr Magnesium Hydroxide (Milk Of Magnesia) 30 ml PO Q4H PRN PRN Reason: Constipation Vancomycin HCl (Vancomycin Pharmacy To Dose) 1 each IV PKCONSULT SYLVIA PRN Reason: Protocol Review of Systems All systems: negative (as per HPI rest negative) Physical Examination - Physical Exam Narrative exam: General appearance: Alert in NAD, conversant Eyes: anicteric sclerae, moist conjunctivae; no lid-lag; PERRLA HENT: Atraumatic; oropharynx clear with moist mucous membranes and no mucosal ulcerations/no oral thrush; normal hard and soft palate. Normal external ears. Neck: Trachea midline; supple, no thyromegaly or lymphadenopathy Lungs: CTA, with normal respiratory effort and no intercostal retractions CV: RRR, no murmurs Abdomen: Soft, non-tender; no masses or hepatosplenomegaly Extremities: left 4th toe discoloration, left 1st toe ulcer, fore foot erythema Skin: Normal temperature, turgor and texture; no rash, ulcers or subcutaneous nodules Psych: Appropriate affect, alert and oriented to person, place and time. Neuro: alert and oriented x 3. Moving all extermities Lines: No CVL / PICC - Constitutional Vitals: Vital Signs Temp Pulse Resp BP Pulse Ox 98.8 F 84 20 138/76 94 06/24/17 08:05 06/24/17 10:00 06/24/17 08:05 06/24/17 08:05 06/24/17 08:56 Temperature -Last 24 Hours Temperature 98.8 F Temperature 97.6 F Temperature 97.5 F Results - Labs CBC & Chem 7: 06/23/17 13:59 06/24/17 07:34 Labs: Abnormal lab results 06/23/17 06/23/17 06/23/17 Range/Units 13:36 13:59 13:59 WBC 17.7 H (4.5-11.0) K/mm3 MCH 27 L (28-32) pg Plt Count 596 H (140-440) K/mm3 Baso # 0.2 H (0.0-0.1) K/mm3 Seg Neutrophils % 79.6 H (40.0-70.0) % Seg Neutrophils # 14.1 H (1.8-7.7) K/mm3 Sodium 123 L (137-145) mmol/L Potassium (3.6-5.0) mmol/L Chloride 85.9 L (98-107) mmol/L Carbon Dioxide 15 L (22-30) mmol/L BUN 23 H (7-17) mg/dL Creatinine 0.6 L (0.7-1.2) mg/dL Glucose 422 H (65-100) mg/dL POC Glucose 412 H (70-105) Calcium (8.4-10.2) mg/dL Alkaline Phosphatase 140 H (35-129) units/L C-Reactive Protein (0.00-1.30) mg/dL Albumin 2.8 L (3.9-5) g/dL 06/23/17 06/23/17 06/23/17 Range/Units 21:59 21:59 22:11 WBC (4.5-11.0) K/mm3 MCH (28-32) pg Plt Count (140-440) K/mm3 Baso # (0.0-0.1) K/mm3 Seg Neutrophils % (40.0-70.0) % Seg Neutrophils # (1.8-7.7) K/mm3 Sodium 129 L (137-145) mmol/L Potassium (3.6-5.0) mmol/L Chloride 90.6 L (98-107) mmol/L Carbon Dioxide (22-30) mmol/L BUN 23 H (7-17) mg/dL Creatinine (0.7-1.2) mg/dL Glucose 352 H (65-100) mg/dL POC Glucose 382 H (70-105) Calcium (8.4-10.2) mg/dL Alkaline Phosphatase (35-129) units/L C-Reactive Protein 9.20 H (0.00-1.30) mg/dL Albumin (3.9-5) g/dL 06/23/17 06/24/17 06/24/17 Range/Units 23:14 00:16 01:07 WBC (4.5-11.0) K/mm3 MCH (28-32) pg Plt Count (140-440) K/mm3 Baso # (0.0-0.1) K/mm3 Seg Neutrophils % (40.0-70.0) % Seg Neutrophils # (1.8-7.7) K/mm3 Sodium 133 L (137-145) mmol/L Potassium 3.3 L D (3.6-5.0) mmol/L Chloride (98-107) mmol/L Carbon Dioxide (22-30) mmol/L BUN 19 H (7-17) mg/dL Creatinine 0.5 L (0.7-1.2) mg/dL Glucose 184 H (65-100) mg/dL POC Glucose 294 H 267 H (70-105) Calcium 7.7 L D (8.4-10.2) mg/dL Alkaline Phosphatase (35-129) units/L C-Reactive Protein (0.00-1.30) mg/dL Albumin (3.9-5) g/dL 06/24/17 06/24/17 06/24/17 Range/Units 01:07 01:36 04:28 WBC (4.5-11.0) K/mm3 MCH (28-32) pg Plt Count (140-440) K/mm3 Baso # (0.0-0.1) K/mm3 Seg Neutrophils % (40.0-70.0) % Seg Neutrophils # (1.8-7.7) K/mm3 Sodium 134 L 135 L (137-145) mmol/L Potassium 3.3 L (3.6-5.0) mmol/L Chloride (98-107) mmol/L Carbon Dioxide (22-30) mmol/L BUN 19 H 19 H (7-17) mg/dL Creatinine 0.6 L 0.6 L (0.7-1.2) mg/dL Glucose 182 H 161 H (65-100) mg/dL POC Glucose 148 H (70-105) Calcium 7.7 L 8.1 L (8.4-10.2) mg/dL Alkaline Phosphatase (35-129) units/L C-Reactive Protein (0.00-1.30) mg/dL Albumin (3.9-5) g/dL 06/24/17 06/24/17 Range/Units 07:34 11:27 WBC (4.5-11.0) K/mm3 MCH (28-32) pg Plt Count (140-440) K/mm3 Baso # (0.0-0.1) K/mm3 Seg Neutrophils % (40.0-70.0) % Seg Neutrophils # (1.8-7.7) K/mm3 Sodium (137-145) mmol/L Potassium (3.6-5.0) mmol/L Chloride (98-107) mmol/L Carbon Dioxide (22-30) mmol/L BUN 19 H (7-17) mg/dL Creatinine 0.6 L (0.7-1.2) mg/dL Glucose 168 H (65-100) mg/dL POC Glucose 252 H (70-105) Calcium 7.9 L (8.4-10.2) mg/dL Alkaline Phosphatase (35-129) units/L C-Reactive Protein (0.00-1.30) mg/dL Albumin (3.9-5) g/dL Assessment and Plan Assessment: 1) Sepsis: Present on admission, manifested by tachycardia, leukocytosis. Etiology - left foot diabetic foot infection. CRP=9.2. 2) Left foot diabetic foot infection with 4th toe discoloaration ? gangrene 3) DM - uncontrolled on DKA Plan: -follow-up blood cultures -consult wound doctor Dr Phillips -arterial US -MRI foot -continue ari Thank you Dr Plascencia for your consultation, will follow up with you. Florencia Parekh MD Infectious Diseases Specialist [facility] ([facility]) M [phone] O [phone]
[2017-06-24] MEDS: NOVOLOG SUB-Q SCH ×3 (14:36→22:58)
[2017-06-24 17:14] LABS: Anion Gap 16 mmol/L; BUN/Creatinine Ratio 27; Blood Urea Nitrogen 19 mg/dL (7-17); Carbon Dioxide 22 mmol/L (22-30); Chloride 96.4 mmol/L (98-107); Glucose 320 mg/dL (65-100); Potassium 4.6 mmol/L (3.6-5.0); Sodium 130 mmol/L (137-145)
[2017-06-25] MEDS: VANCOMYCIN/NS 1 GM/250 ML 1 GM/250 ML BAG IV SCH ×3 (00:30→23:50)
[2017-06-25 01:52] LABS: Anion Gap 13 mmol/L; BUN/Creatinine Ratio 27; Blood Urea Nitrogen 16 mg/dL (7-17); Calcium 7.9 mg/dL (8.4-10.2); Carbon Dioxide 24 mmol/L (22-30); Chloride 100.3 mmol/L (98-107); Glucose 190 mg/dL (65-100); Potassium 3.8 mmol/L (3.6-5.0); Sodium 133 mmol/L (137-145)
[2017-06-25] MEDS: ZOSYN/NS 4.5GM/100ML 4.5 GM/100 ML VIAL IV SCH ×3 (07:01→22:42)
[2017-06-25] MEDS: NOVOLOG SUB-Q SCH ×4 (09:02→22:43)
--- NOTE | 2017-06-25 11:19 | Progress Note ---
Assessment and Plan Assessment: 1) Sepsis: better. Etiology - left foot diabetic foot infection. CRP=9.2. 2) Left foot diabetic foot infection with 4th toe discoloration ? gangrene 3) DM - uncontrolled on DKA Plan: -follow-up blood cultures -consult wound doctor Dr Phillips - pending -follow-up arterial US and MRI foot -continue zosyn and vanco Thank you Dr Plascencia for your consultation, will follow up with you. Florencia Parekh MD Infectious Diseases Specialist [facility] ([facility]) M [phone] O [phone] Subjective Date of service: 06/25/17 Interval history: Feels ok no fever. Microbiology: Blood cultures: 06/23 ngtd Urine cultures: Respiratory cultures: Wound cultures: Current Antimicrobials: Zosyn 06/24 Vancomycin 06/23 Objective - Exam Narrative Exam: General appearance: Alert in NAD, conversant Eyes: anicteric sclerae, moist conjunctivae; no lid-lag; PERRLA HENT: Atraumatic; oropharynx clear with moist mucous membranes and no mucosal ulcerations/no oral thrush; normal hard and soft palate. Normal external ears. Neck: Trachea midline; supple, no thyromegaly or lymphadenopathy Lungs: CTA, with normal respiratory effort and no intercostal retractions CV: RRR, no murmurs Abdomen: Soft, non-tender; no masses or hepatosplenomegaly Extremities: left 4th toe discoloration, left 1st toe ulcer, fore foot erythema Skin: Normal temperature, turgor and texture; no rash, ulcers or subcutaneous nodules Psych: Appropriate affect, alert and oriented to person, place and time. Neuro: alert and oriented x 3. Moving all extermities Lines: No CVL / PICC - Constitutional Vitals: Vital Signs Temp Pulse Resp BP Pulse Ox 99.2 F 83 20 143/86 97 06/25/17 08:39 06/25/17 08:39 06/25/17 08:39 06/25/17 08:39 06/25/17 08:39 Temperature -Last 24 Hours Temperature 99.2 F Temperature 99.2 F Temperature 98.9 F - Labs CBC & Chem 7: 06/23/17 13:59 06/25/17 01:24 Labs: Abnormal lab results 06/24/17 06/24/1706/24/17 Range/Units 11:27 16:33 16:57 Sodium 130 L D (137-145) mmol/L Chloride 96.4 L (98-107) mmol/L BUN 19 H (7-17) mg/dL Creatinine (0.7-1.2) mg/dL Glucose 320 H (65-100) mg/dL POC Glucose 252 H 307 H (70-105) Calcium 8.0 L (8.4-10.2) mg/dL 06/24/17 06/25/17 06/25/17 Range/Units 22:45 01:24 05:15 Sodium 133 L (137-145) mmol/L Chloride (98-107) mmol/L BUN (7-17) mg/dL Creatinine 0.6 L (0.7-1.2) mg/dL Glucose 190 H (65-100) mg/dL POC Glucose 221 H 160 H (70-105) Calcium 7.9 L (8.4-10.2) mg/dL
--- NOTE | 2017-06-25 12:46 | Magnetic Resonance Report ---
MR LOWER EXTREMITY JOINT LEFT WITH AND WITHOUT CONTRAST HISTORY: Evaluate for left foot osteomyelitis. TECHNIQUE: Multisequence, multiplanar MRI before and after IV gadolinium was obtained through the left foot. FINDINGS: Compared to the left foot films dated 06/23/17. There is abnormal bone marrow edema, decreased T1 signal and enhancement throughout the fourth toe and the distal phalanx of the great toe. These findings are highly suggestive of osteomyelitis. There is no evidence for abscess. Bone marrow signal throughout the remainder of the left foot is within normal limits. The musculotendinous structures are intact and normal signal. No rupture or tenosynovitis is identified. There is diffuse soft tissue edema and enhancement consistent with cellulitis and myositis. There is a focal area of enhancement in the soft tissues inferior to the calcaneus. This may represent an area of ulceration. The bone marrow signal in the underlying calcaneus is within normal limits with no evidence of osteomyelitis. IMPRESSION: Findings consistent with osteomyelitis of the fourth toe and the distal phalanx of the great toe. Cellulitis. Myositis.
--- NOTE | 2017-06-25 16:24 | Progress Note ---
Assessment and Plan Assessment and plan: 56 YO Female with HTN, DM presents to ED for evaluation. She has a history of picking off, plucking of her toenails. She's had previous infections in her right foot., She admits that she stopped of all the toenails in her left foot. And over the course of 2 weeks he developed swelling redness in her left foot Sepsis Continue sepsis protocol Accelerated hypertension Optimize blood pressure medications Osteomyelitis of left fourth toe Continue IV antibiotics, will need surgical debridement versus amputation Case discussed with infectious disease consultants Left fourth toe wet gangrene Vascular surgery consult placed, will obtain arteriovascular studies. Metabolic acidosis Treat sepsis, supportive care, IVF, Uncontrolled diabetes/type II Continue insulins, optimize them DVT prophylaxis Current Visit: Yes Status: Acute History Interval history: She states that she has minimal pain in her left foot because she has poor sensation in it. Admits that she picked off all her toenails as a bad habit. Left foot is still swollen, the swelling is decreasing, redness is decreasing. There is still spell small coming from the left fourth toe Review of systems Constitutional: No fevers, no malaise, no joint pains CVS: No chest pain, no orthopnea, no dyspnea on exertion, no pedal edema GI: No abdominal pain, no diarrhea, no vomiting, no constipation Respiratory: No shortness of breath, no wheezing, no coughing Hospitalist Physical - Physical exam Narrative exam: General.: Appears well, no distress, nontoxic HEENT: Moist mucous membranes, extraocular muscles intact, no lymphadenopathy Neck: supple Cardiac: S1-S2 heard Lungs: clear to auscultation bilaterally Abdomen: soft , nontender, nondistended, bowel sounds positive Extremities: left foot redness and swelling, left 4th toe is kapoor, foul smelling , and appears gangrenous Skin: no rash or lesions Neurologic: no gross focal deficits Psych: appropriate behavior, appropriate mood, corporative, judgment intact - Constitutional Vitals: Temp Pulse Resp BP Pulse Ox 99.8 F H 89 20 144/76 95 06/25/17 15:20 06/25/17 15:20 06/25/17 15:20 06/25/17 15:20 06/25/17 15:20 General appearance: Present: mild distress Results - Labs CBC & Chem 7: 06/26/17 18:35 06/25/17 01:24 Labs: Laboratory Last Values WBC 17.7 K/mm3 (4.5-11.0) H 06/23/17 13:59 RBC 4.81 M/mm3 (3.65-5.03) 06/23/17 13:59 Hgb 12.8 gm/dl (10.1-14.3) 06/23/17 13:59 Hct 39.2 % (30.3-42.9) 06/23/17 13:59 MCV 82 fl (79-97) 06/23/17 13:59 MCH 27 pg (28-32) L 06/23/17 13:59 MCHC 33 % (30-34) 06/23/17 13:59 RDW 14.8 % (13.2-15.2) 06/23/17 13:59 Plt Count 596 K/mm3 (140-440) H 06/23/17 13:59 Lymph % (Auto) 14.0 % (13.4-35.0) 06/23/17 13:59 [place] % (Auto) 4.5 % (0.0-7.3) 06/23/17 13:59 Eos % (Auto) 0.7 % (0.0-4.3) 06/23/17 13:59 Baso % (Auto) 1.2 % (0.0-1.8) 06/23/17 13:59 Lymph # 2.5 K/mm3 (1.2-5.4) 06/23/17 13:59 [place] # 0.8 K/mm3 (0.0-0.8) 06/23/17 13:59 Eos # 0.1 K/mm3 (0.0-0.4) 06/23/17 13:59 Baso # 0.2 K/mm3 (0.0-0.1) H 06/23/17 13:59 Seg Neutrophils % 79.6 % (40.0-70.0) H 06/23/17 13:59 Seg Neutrophils # 14.1 K/mm3 (1.8-7.7) H 06/23/17 13:59 ESR 55 mm/Hr (0-20) 06/23/17 21:59 VBG pH 7.338 (7.320-7.420) 06/23/17 13:59 Sodium 133 mmol/L (137-145) L 06/25/17 01:24 Potassium 3.8 mmol/L (3.6-5.0) 06/25/17 01:24 Chloride 100.3 mmol/L (98-107) 06/25/17 01:24 Carbon Dioxide 24 mmol/L (22-30) 06/25/17 01:24 Anion Gap 13 mmol/L 06/25/17 01:24 BUN 16 mg/dL (7-17) 06/25/17 01:24 Creatinine 0.6 mg/dL (0.7-1.2) L 06/25/17 01:24 Estimated GFR > 60 ml/min 06/25/17 01:24 BUN/Creatinine Ratio 27 % 06/25/17 01:24 Glucose 190 mg/dL (65-100) H 06/25/17 01:24 POC Glucose 350 (70-105) H 06/25/17 12:19 Lactic Acid 0.70 mmol/L (0.7-2.0) 06/24/17 04:28 Calcium 7.9 mg/dL (8.4-10.2) L 06/25/17 01:24 Phosphorus 3.20 mg/dL (2.5-4.5) D 06/24/17 04:28 Magnesium 1.90 mg/dL (1.7-2.3) 06/24/17 04:28 Total Bilirubin 0.20 mg/dL (0.1-1.2) 06/23/17 13:59 AST 17 units/L (5-40) 06/23/17 13:59 ALT 16 units/L (7-56) 06/23/17 13:59 Alkaline Phosphatase 140 units/L (35-129) H 06/23/17 13:59 Total Creatine Kinase 56 units/L (30-135) 06/23/17 21:59 C-Reactive Protein 9.20 mg/dL (0.00-1.30) H 06/23/17 21:59 Total Protein 8.1 g/dL (6.3-8.2) 06/23/17 13:59 Albumin 2.8 g/dL (3.9-5) L 06/23/17 13:59 Albumin/Globulin Ratio 0.5 % 06/23/17 13:59 Urine Color Yellow (Yellow) 06/23/17 23:59 Urine Turbidity Clear (Clear) 06/23/17 23:59 Urine pH 5.0 (5.0-7.0) 06/23/17 23:59 Ur Specific [place] 1.023 (1.003-1.030) 06/23/17 23:59 Urine Protein >500 mg/dL (Negative) 06/23/17 23:59 Urine Glucose (UA) >=500 mg/dL (Negative) 06/23/17 23:59 Urine Ketones Neg mg/dL (Negative) 06/23/17 23:59 Urine Blood Sm (Negative) 06/23/17 23:59 Urine Nitrite Neg (Negative) 06/23/17 23:59 Urine Bilirubin Neg (Negative) 06/23/17 23:59 Urine Urobilinogen < 2.0 mg/dL (<2.0) 06/23/17 23:59 Ur Leukocyte Esterase Neg (Negative) 06/23/17 23:59 Urine WBC (Auto) 5.0 /HPF (0.0-6.0) 06/23/17 23:59 Urine RBC (Auto) 2.0 /HPF (0.0-6.0) 06/23/17 23:59 U Epithel Cells (Auto) 3.0 /HPF (0-13.0) 06/23/17 23:59 Urine Bacteria (Auto) 4+ /HPF (Negative) 06/23/17 23:59 Urine Mucus Few /HPF 06/23/17 23:59
[2017-06-25] MEDS: LEVEMIR SUB-Q SCH (22:45)
[2017-06-26] MEDS: ZOSYN/NS 4.5GM/100ML 4.5 GM/100 ML VIAL IV SCH ×3 (06:19→23:05)
--- NOTE | 2017-06-26 07:37 | Vascular Lab Report ---
LEFT LOWER EXTREMITY ARTERIAL DUPLEX: REASON FOR EXAM: Peripheral arterial disease. COMMENTS ON THE LEFT: Triphasic waveforms are seen proximally. Monophasic waveforms are seen distally. Calcified plaque identified in the popliteal artery. No significant velocity gradient seen. Findings are consistent with abnormal perfusion. Findings are inconclusive with the ability to heal distal wounds. IMPRESSION: LEFT:Nonhemodynamically significant stenosis in the popliteal artery..
[2017-06-26] MEDS: NOVOLOG SUB-Q SCH ×4 (08:07→23:28)
--- NOTE | 2017-06-26 09:26 | Consultation ---
History of Present Illness - HPI Consult date: 06/26/17 Consult reason: other History of present illness: 56 YO Female with HTN, DM presented to ED for evaluation. Pt states that she has experienced very high blood glucose levels for the past 3 days. Pt also reports discoloration and pain in her left foot for the past 2 days. Pt also acknowledges Left foot swelling, redness, and pain with weight bearing, subjective fever, chills, generalized weakness. Asked to evaluate left foot for possible osteomyelitis... Past History Past Medical History: diabetes, hypertension Past Surgical History: Social history: , lives with family. denies: smoking, alcohol abuse, prescription drug abuse, IV drug use Family history: diabetes, hypertension Medications and Allergies Allergies Allergy/AdvReac Type Severity Reaction Status Date / Time No Known Allergies Allergy Verified 06/23/17 13:34 Home Medications Medication Instructions Recorded Confirmed Last Taken Type Enalapril Maleate [Vasotec] 10 mg PO QDAY 10/15/13 06/23/17 10/15/13 History Gabapentin 300 mg PO QHS 10/15/13 06/23/17 10/15/13 History glipiZIDE [Glucotrol] 5 mg PO DAILY 10/15/13 06/23/17 10/15/13 History metFORMIN [Glucophage] 500 mg PO BID 10/15/13 06/23/17 10/15/13 History Escitalopram Oxalate [Lexapro] 5 mg PO QDAY 06/23/17 06/23/17 Unknown History Active Meds: Active Medications Al Hydrox/Mg Hydrox/Simethicone (Alum-Mag Hydrox-Simeth 426-162-97qe/5ml) 30 ml PO Q4H PRN PRN Reason: Indigestion Albuterol (Proventil) 2.5 mg IH Q3HRT PRN PRN Reason: Shortness Of Breath Bisacodyl (Dulcolax) [address] QDAY PRN PRN Reason: constipation unrelieved by MOM Dextrose (D50w (25gm) Syringe) 0 ml IV PRN PRN PRN Reason: Hypoglycemia Hydromorphone HCl (Dilaudid) 0.25 mg IV Q4H PRN PRN Reason: Pain, Moderate (4-6) Piperacillin Sod/Tazobactam Sod (Zosyn/Ns 4.5gm/100ml) 4.5 gm in 100 mls @ 200 mls/hr IV Q8HR SYLVIA PRN Reason: Protocol Last Admin: 06/26/17 06:19 Dose: 200 mls/hr Vancomycin HCl (Vancomycin/Ns 1 Gm/250 Ml) 1 gm in 250 mls @ 166.667 mls/hr IV Q12HR SY[facility]IA Last Admin: 06/25/17 23:50 Dose: 166.667 mls/hr Insulin Aspart (Novolog) 0 units SUB-Q ACHS SY[facility]IA PRN Reason: Protocol Last Admin: 06/26/17 08:07 Dose: Not Given Insulin Detemir (Levemir) 15 units SUB-Q QHS [facility] Last Admin: 06/25/17 22:45 Dose: 15 units Magnesium Hydroxide (Milk Of Magnesia) 30 ml PO Q4H PRN PRN Reason: Constipation Vancomycin HCl (Vancomycin Pharmacy To Dose) 1 each IV PKCONSULT SYLVIA PRN Reason: Protocol Physical Examination - Physical exam Narrative exam: left foot - mild to moderate edema dorsally, at 3,4th toes,minimal drainage at 4th with darken skin at tip distal phalanx, minimal erythema present, good capillary refill... plain xrays reviewed by me and see no evidence of osteomyelitis, or air in soft tissues Assessment and Plan cellulitis left foot recommend continue antibiotics, instructed to place cotton gauge in-between toes and keep foot elevated
[2017-06-26] MEDS: VANCOMYCIN/NS 1 GM/250 ML 1 GM/250 ML BAG IV SCH ×2 (10:28→23:03)
--- NOTE | 2017-06-26 15:02 | Progress Note ---
Assessment and Plan Assessment: 1) Sepsis: better. Etiology - left foot diabetic foot infection. CRP=9.2. 2) Left foot diabetic foot infection with 4th toe ulcer -MRI showed 4th toe osteomyelitis, myositis and cellulitis 3) DM - uncontrolled on DKA Plan: -obtain wound cultures - discussed with nursing staff -consult wound doctor Dr Phillips - may need toe amputation versus debridement -if not amputation then she needs IV abx for 6 weeks -follow-up arterial US and MRI foot -continue zosyn and vanco I am covering the weekend Thank you Dr Plascencia for your consultation, will follow up with you. Florencia Parekh MD Infectious Diseases Specialist [facility] ([facility]) M [phone] O [phone] Subjective Date of service: 06/26/17 Principal diagnosis: diabetic food infection/osteomyelitis Interval history: Feels ok no fever. Microbiology: Blood cultures: 06/23 ngtd Current Antimicrobials: Zosyn 06/24 Vancomycin 06/23 Objective - Exam Narrative Exam: General appearance: Alert in NAD, conversant Eyes: anicteric sclerae, moist conjunctivae; no lid-lag; PERRLA HENT: Atraumatic; oropharynx clear with moist mucous membranes and no mucosal ulcerations/no oral thrush; normal hard and soft palate. Normal external ears. Neck: Trachea midline; supple, no thyromegaly or lymphadenopathy Lungs: CTA, with normal respiratory effort and no intercostal retractions CV: RRR, no murmurs Abdomen: Soft, non-tender; no masses or hepatosplenomegaly Extremities: left 4th toe discoloration, left 1st toe ulcer, fore foot erythema Skin: Normal temperature, turgor and texture; no rash, ulcers or subcutaneous nodules Psych: Appropriate affect, alert and oriented to person, place and time. Neuro: alert and oriented x 3. Moving all extermities Lines: No CVL / PICC - Constitutional Vitals: Vital Signs Temp Pulse Resp BP Pulse Ox 98.3 F 88 20 119/79 100 06/26/17 09:01 06/26/17 09:01 06/26/17 09:01 06/26/17 09:01 06/26/17 12:15 Temperature -Last 24 Hours Temperature 98.3 F Temperature 98.8 F Temperature 99.8 F - Labs CBC & Chem 7: 06/23/17 13:59 06/25/17 01:24 Labs: Abnormal lab results 06/25/17 06/25/17 06/26/17 Range/Units 17:06 21:58 05:31 POC Glucose 254 H 293 H 137 H (70-105) 06/26/17 Range/Units 12:53 POC Glucose 203 H (70-105)
--- NOTE | 2017-06-26 16:42 | Consultation ---
History of Present Illness - Reason for Consult Consult date: 06/26/17 peripheral vascular disease with gangrene to the toes of the left foot. - History of Present Illness Patient with a history of diabetes uncontrolled presents with worsening gangrenous changes to the phalanges of her foot. Her arterial ultrasound demonstrates triphasic forms within the proximal iliac and superficial artery with monophasic low in the tibial vessels. The patient has nonpalpable pedal pulses on her left foot and palpable pedal pulses on her right foot. She complains of pain over the anterior aspect of her midfoot Past History Past Medical History: diabetes, hypertension Past Surgical History: Social history: , lives with family. denies: smoking, alcohol abuse, prescription drug abuse, IV drug use Family history: diabetes, hypertension Medications and Allergies Allergies Allergy/AdvReac Type Severity Reaction Status Date / Time No Known Allergies Allergy Verified 06/23/17 13:34 Home Medications Medication Instructions Recorded Confirmed Last Taken Type Enalapril Maleate [Vasotec] 10 mg PO QDAY 10/15/13 06/23/17 10/15/13 History Gabapentin 300 mg PO QHS 10/15/13 06/23/17 10/15/13 History glipiZIDE [Glucotrol] 5 mg PO DAILY 10/15/13 06/23/17 10/15/13 History metFORMIN [Glucophage] 500 mg PO BID 10/15/13 06/23/17 10/15/13 History Escitalopram Oxalate [Lexapro] 5 mg PO QDAY 06/23/17 06/23/17 Unknown History Active Meds: Active Medications Al Hydrox/Mg Hydrox/Simethicone (Alum-Mag Hydrox-Simeth [phone]/5ml) 30 ml PO Q4H PRN PRN Reason: Indigestion Albuterol (Proventil) 2.5 mg IH Q3HRT PRN PRN Reason: Shortness Of Breath Bisacodyl (Dulcolax) 10 mg SC QDAY PRN PRN Reason: constipation unrelieved by MOM Dextrose (D50w (25gm) Syringe) 0 ml IV PRN PRN PRN Reason: Hypoglycemia Hydromorphone HCl (Dilaudid) 0.25 mg IV Q4H PRN PRN Reason: Pain, Moderate (4-6) Piperacillin Sod/Tazobactam Sod (Zosyn/Ns 4.5gm/100ml) 4.5 gm in 100 mls @ 200 mls/hr IV Q8HR SYLVIA PRN Reason: Protocol Last Admin: 06/26/17 14:04 Dose: 200 mls/hr Vancomycin HCl (Vancomycin/Ns 1 Gm/250 Ml) 1 gm in 250 mls @ 166.667 mls/hr IV Q12HR [facility] Last Admin: 06/26/17 10:28 Dose: 166.667 mls/hr Insulin Aspart (Novolog) 0 units SUB-Q ACHS SYLVIA PRN Reason: Protocol Last Admin: 06/26/17 14:03 Dose: 3 units Insulin Detemir (Levemir) 15 units SUB-Q QHS [facility] Last Admin: 06/25/17 22:45 Dose: 15 units Magnesium Hydroxide (Milk Of Magnesia) 30 ml PO Q4H PRN PRN Reason: Constipation Vancomycin HCl (Vancomycin Pharmacy To Dose) 1 each IV PKCONSULT SYLVIA PRN Reason: Protocol Review of Systems All systems: negative Exam - Constitutional Vitals: Temp Pulse Resp BP Pulse Ox 98.3 F 88 20 119/79 100 06/26/17 09:01 06/26/17 09:01 06/26/17 09:01 06/26/17 09:01 06/26/17 12:15 General appearance: Present: no acute distress - EENT Eyes: Present: PERRL, EOM intact ENT: hearing intact - Neck Neck: Present: supple, normal ROM - Respiratory Respiratory effort: normal - Extremities Extremities: abnormal Extremity abnormal: edema - Rectal Rectal Exam: deferred - Psychiatric Psychiatric: cooperative Results - Labs CBC & Chem 7: 06/23/17 13:59 06/25/17 01:24 Labs: Abnormal lab results 06/25/17 06/25/17 06/26/17 Range/Units 17:06 21:58 05:31 POC Glucose 254 H 293 H 137 H (70-105) 06/26/17 Range/Units 12:53 POC Glucose 203 H (70-105) - Imaging and Cardiology Venous US: report reviewed, image reviewed Assessment and Plan Patient with peripheral vascular disease with gangrene to toes on her left foot. She'll need debridement of the left foot however, prior to this patient will need to undergo a revascularization procedure of the left leg. This will be scheduled for Thursday.
--- NOTE | 2017-06-26 17:02 | Consultation ---
History of Present Illness Consult date: 06/26/17 Reason for consult: other (Infected left 4th toe) - History of present illness History of present illness: 56 yo diabetic female with an infected left 4th toe. Past History Past Medical History: diabetes, hypertension Past Surgical History: Social history: , lives with family. denies: smoking, alcohol abuse, prescription drug abuse, IV drug use Family history: diabetes, hypertension Medications and Allergies Allergies Allergy/AdvReac Type Severity Reaction Status Date / Time No Known Allergies Allergy Verified 06/23/17 13:34 Home Medications Medication Instructions Recorded Confirmed Last Taken Type Enalapril Maleate [Vasotec] 10 mg PO QDAY 10/15/13 06/23/17 10/15/13 History Gabapentin 300 mg PO QHS 10/15/13 06/23/17 10/15/13 History glipiZIDE [Glucotrol] 5 mg PO DAILY 10/15/13 06/23/17 10/15/13 History metFORMIN [Glucophage] 500 mg PO BID 10/15/13 06/23/17 10/15/13 History Escitalopram Oxalate [Lexapro] 5 mg PO QDAY 06/23/17 06/23/17 Unknown History Active Meds: Active Medications Al Hydrox/Mg Hydrox/Simethicone (Alum-Mag Hydrox-Simeth [id number]/5ml) 30 ml PO Q4H PRN PRN Reason: Indigestion Albuterol (Proventil) 2.5 mg IH Q3HRT PRN PRN Reason: Shortness Of Breath Bisacodyl (Dulcolax) 10 mg MD QDAY PRN PRN Reason: constipation unrelieved by MOM Dextrose (D50w (25gm) Syringe) 0 ml IV PRN PRN PRN Reason: Hypoglycemia Hydromorphone HCl (Dilaudid) 0.25 mg IV Q4H PRN PRN Reason: Pain, Moderate (4-6) Piperacillin Sod/Tazobactam Sod (Zosyn/Ns 4.5gm/100ml) 4.5 gm in 100 mls @ 200 mls/hr IV Q8HR SY[facility]IA PRN Reason: Protocol Last Admin: 06/26/17 14:04 Dose: 200 mls/hr Vancomycin HCl (Vancomycin/Ns 1 Gm/250 Ml) 1 gm in 250 mls @ 166.667 mls/hr IV Q12HR [facility] Last Admin: 06/26/17 10:28 Dose: 166.667 mls/hr Insulin Aspart (Novolog) 0 units SUB-Q ACHS SYLVIA PRN Reason: Protocol Last Admin: 06/26/17 14:03 Dose: 3 units Insulin Detemir (Levemir) 15 units SUB-Q QHS [facility] Last Admin: 06/25/17 22:45 Dose: 15 units Magnesium Hydroxide (Milk Of Magnesia) 30 ml PO Q4H PRN PRN Reason: Constipation Vancomycin HCl (Vancomycin Pharmacy To Dose) 1 each IV PKCONSULT SYLVIA PRN Reason: Protocol Review of Systems All systems: negative Exam Vital Signs Temp Pulse Resp BP Pulse Ox 97.5 F L 102 H 18 197/109 98 06/23/17 13:34 06/23/17 13:34 06/23/17 13:34 06/23/17 13:34 06/23/17 13:34 - General physical appearance Positive: well developed, well nourished, no distress - Eyes Positive: PERRL, normal occular movement - ENT Positive: normal pinna, normal nares, normal mucosa, no hearing loss, no congestion - Neck Positive: no masses, no bruits, trachea midline, no venous distension - Respiratory Positive: normal expansion, normal respiratory effort, clear to auscultation - Cardiovascular Rhythm: regular Heart Sounds: Present: S1 & S2. Absent: rub, click - Extremities Extremities: No edema, normal temperature Peripheral Pulses: abnormal (The left DP and PT pulses are non-palpable.) - Breasts Breasts: deferred - Abdomen Abdomen: Present: soft, bowel sounds normal. Absent: tender, distended Hernia: none - Genitourinary Female Genitourinary: deferred - Integumentary other (The skin of the left 4th toe is raised with what appears to be an ulceration along the lateral aspect of the toe. There is no associated cellulitis or abscess.) - Neurologic Neurologic: alert and oriented to time, place and person, motor strength and sensation are grossly intact - Musculoskeletal normal gait, normal posture - Psychiatric Psychiatric: appropriate mood/affect, intact judgment & insight Results - Labs 06/23/17 13:59 06/25/17 01:24 Abnormal lab results 06/25/17 06/25/17 06/26/17 Range/Units 17:06 21:58 05:31 POC Glucose 254 H 293 H 137 H (70-105) 06/26/17 Range/Units 12:53 POC Glucose 203 H (70-105) Assessment and Plan - Patient Problems (1) Cellulitis of left foot Current Visit: Yes Status: Acute Plan to address problem: 1) Continue IV antibiotics 2) Pt was evaluated by the IR physician simultaneously. He plans on further studies to determine if the left foot is adequately vascularized. Debridement of her left 4th toe will be considered once the vascular evaluation has been completed. 3) Recommend strict DM control 4) Repeat CBC
[2017-06-26 19:23] LABS: Eosinophils % (Auto) 2.3 % (0.0-4.3); Hematocrit 36.9 % (30.3-42.9); Mean Corpuscular HGB Conc 33 % (30-34); Mean Corpuscular Hemoglobin 27 pg (28-32); Mean Corpuscular Volume 84 fl (79-97); Platelet Count 555 K/mm3 (140-440); Red Blood Count 4.41 M/mm3 (3.65-5.03); Red Cell Distribution Width 14.6 % (13.2-15.2); White Blood Count 12.7 K/mm3 (4.5-11.0)
--- NOTE | 2017-06-26 20:14 | Progress Note ---
Assessment and Plan Assessment and plan: 56 YO Female with HTN, DM presents to ED for evaluation. She has a history of picking off, plucking of her toenails. She's had previous infections in her right foot., She admits that she stopped of all the toenails in her left foot. And over the course of 2 weeks he developed swelling redness in her left foot Sepsis Continue sepsis protocol Accelerated hypertension Optimize blood pressure medications Osteomyelitis of left fourth toe Continue IV antibiotics, will need surgical debridement versus amputation Case discussed with infectious disease consultants Left fourth toe wet gangrene Vascular surgery consult placed, will obtain arteriovascular studies. Metabolic acidosis Treat sepsis, supportive care, IVF, Uncontrolled diabetes/type II Continue insulins, optimize them DVT prophylaxis Current Visit: Yes Status: Acute History Interval history: She states that she has minimal pain in her left foot because she has poor sensation in it. Admits that she picked off all her toenails as a bad habit. Left foot is still swollen, the swelling is decreasing, redness is decreasing. There is still spell small coming from the left fourth toe Review of systems Constitutional: No fevers, no malaise, no joint pains CVS: No chest pain, no orthopnea, no dyspnea on exertion, no pedal edema GI: No abdominal pain, no diarrhea, no vomiting, no constipation Respiratory: No shortness of breath, no wheezing, no coughing Hospitalist Physical - Physical exam Narrative exam: General.: Appears well, no distress, nontoxic HEENT: Moist mucous membranes, extraocular muscles intact, no lymphadenopathy Neck: supple Cardiac: S1-S2 heard Lungs: clear to auscultation bilaterally Abdomen: soft , nontender, nondistended, bowel sounds positive Extremities: left foot redness and swelling, left 4th toe is kapoor, foul smelling , and appears gangrenous Skin: no rash or lesions Neurologic: no gross focal deficits Psych: appropriate behavior, appropriate mood, corporative, judgment intact - Constitutional Vitals: Temp Pulse Resp BP Pulse Ox 99.3 F 99 H 20 193/107 98 06/26/17 16:28 06/26/17 16:28 06/26/17 16:28 06/26/17 16:28 06/26/17 16:28 General appearance: Present: no acute distress Results - Labs CBC & Chem 7: 06/26/17 18:35 06/25/17 01:24 Labs: Laboratory Last Values WBC 12.7 K/mm3 (4.5-11.0) H 06/26/17 18:35 RBC 4.41 M/mm3 (3.65-5.03) 06/26/17 18:35 Hgb 12.0 gm/dl (10.1-14.3) 06/26/17 18:35 Hct 36.9 % (30.3-42.9) 06/26/17 18:35 MCV 84 fl (79-97) 06/26/17 18:35 MCH 27 pg (28-32) L 06/26/17 18:35 MCHC 33 % (30-34) 06/26/17 18:35 RDW 14.6 % (13.2-15.2) 06/26/17 18:35 Plt Count 555 K/mm3 (140-440) H 06/26/17 18:35 Lymph % (Auto) 17.2 % (13.4-35.0) 06/26/17 18:35 [place]lin % (Auto) 6.2 % (0.0-7.3) 06/26/17 18:35 Eos % (Auto) 2.3 % (0.0-4.3) 06/26/17 18:35 Baso % (Auto) 1.0 % (0.0-1.8) 06/26/17 18:35 Lymph # 2.2 K/mm3 (1.2-5.4) 06/26/17 18:35 [place]lin # 0.8 K/mm3 (0.0-0.8) 06/26/17 18:35 Eos # 0.3 K/mm3 (0.0-0.4) 06/26/17 18:35 Baso # 0.1 K/mm3 (0.0-0.1) 06/26/17 18:35 Seg Neutrophils % 73.3 % (40.0-70.0) H 06/26/17 18:35 Seg Neutrophils # 9.3 K/mm3 (1.8-7.7) H 06/26/17 18:35 ESR 55 mm/Hr (0-20) 06/23/17 21:59 VBG pH 7.338 (7.320-7.420) 06/23/17 13:59 Sodium 133 mmol/L (137-145) L 06/25/17 01:24 Potassium 3.8 mmol/L (3.6-5.0) 06/25/17 01:24 Chloride 100.3 mmol/L (98-107) 06/25/17 01:24 Carbon Dioxide 24 mmol/L (22-30) 06/25/17 01:24 Anion Gap 13 mmol/L 06/25/17 01:24 BUN 16 mg/dL (7-17) 06/25/17 01:24 Creatinine 0.6 mg/dL (0.7-1.2) L 06/25/17 01:24 Estimated GFR > 60 ml/min 06/25/17 01:24 BUN/Creatinine Ratio 27 % 06/25/17 01:24 Glucose 190 mg/dL (65-100) H 06/25/17 01:24 POC Glucose 281 (70-105) H 06/26/17 17:38 Lactic Acid 0.70 mmol/L (0.7-2.0) 06/24/17 04:28 Calcium 7.9 mg/dL (8.4-10.2) L 06/25/17 01:24 Phosphorus 3.20 mg/dL (2.5-4.5) D 06/24/17 04:28 Magnesium 1.90 mg/dL (1.7-2.3) 06/24/17 04:28 Total Bilirubin 0.20 mg/dL (0.1-1.2) 06/23/17 13:59 AST 17 units/L (5-40) 06/23/17 13:59 ALT 16 units/L (7-56) 06/23/17 13:59 Alkaline Phosphatase 140 units/L (35-129) H 06/23/17 13:59 Total Creatine Kinase 56 units/L (30-135) 06/23/17 21:59 C-Reactive Protein 9.20 mg/dL (0.00-1.30) H 06/23/17 21:59 Total Protein 8.1 g/dL (6.3-8.2) 06/23/17 13:59 Albumin 2.8 g/dL (3.9-5) L 06/23/17 13:59 Albumin/Globulin Ratio 0.5 % 06/23/17 13:59 Urine Color Yellow (Yellow) 06/23/17 23:59 Urine Turbidity Clear (Clear) 06/23/17 23:59 Urine pH 5.0 (5.0-7.0) 06/23/17 23:59 Ur Specific Wayne 1.023 (1.003-1.030) 06/23/17 23:59 Urine Protein >500 mg/dL (Negative) 06/23/17 23:59 Urine Glucose (UA) >=500 mg/dL (Negative) 06/23/17 23:59 Urine Ketones Neg mg/dL (Negative) 06/23/17 23:59 Urine Blood Sm (Negative) 06/23/17 23:59 Urine Nitrite Neg (Negative) 06/23/17 23:59 Urine Bilirubin Neg (Negative) 06/23/17 23:59 Urine Urobilinogen < 2.0 mg/dL (<2.0) 06/23/17 23:59 Ur Leukocyte Esterase Neg (Negative) 06/23/17 23:59 Urine WBC (Auto) 5.0 /HPF (0.0-6.0) 06/23/17 23:59 Urine RBC (Auto) 2.0 /HPF (0.0-6.0) 06/23/17 23:59 U Epithel Cells (Auto) 3.0 /HPF (0-13.0) 06/23/17 23:59 Urine Bacteria (Auto) 4+ /HPF (Negative) 06/23/17 23:59 Urine Mucus Few /HPF 06/23/17 23:59 Vancomycin Trough 19.7 ug/mL (5.0-20.0) 06/25/17 19:49
[2017-06-26] MEDS: LEVEMIR SUB-Q SCH (23:04)
[2017-06-27] MEDS: ZOSYN/NS 4.5GM/100ML 4.5 GM/100 ML VIAL IV SCH ×3 (06:27→21:48)
[2017-06-27] MEDS: NOVOLOG SUB-Q SCH ×4 (08:08→22:09)
--- NOTE | 2017-06-27 11:05 | Progress Note ---
Assessment and Plan Assessment and plan: 56 YO Female with HTN, DM presents to ED for evaluation. She has a history of picking off, plucking of her toenails. She's had previous infections in her right foot., She admits that she stopped of all the toenails in her left foot. And over the course of 2 weeks he developed swelling redness in her left foot Sepsis Continue sepsis protocol Accelerated hypertension Optimize blood pressure medications Osteomyelitis of left fourth toe Continue IV antibiotics, will need surgical debridement versus amputation Case discussed with infectious disease consultants will need 6 to 8 weeks of IV abx Left fourth toe wet gangrene Case discussed with vascular surgery Arterial duplex shows stenosis of left popliteal artery We will need revascularization procedure most likely on Thursday Metabolic acidosis Treat sepsis, supportive care, IVF, Uncontrolled diabetes/type II Continue insulins, optimize them DVT prophylaxis Current Visit: Yes Status: Acute History Interval history: She states that she has minimal pain in her left foot because she has poor sensation in it. Admits that she picked off all her toenails as a bad habit. Left foot is still swollen, the swelling is decreasing, redness is decreasing. There is still spell small coming from the left fourth toe Review of systems Constitutional: No fevers, no malaise, no joint pains CVS: No chest pain, no orthopnea, no dyspnea on exertion, no pedal edema GI: No abdominal pain, no diarrhea, no vomiting, no constipation Respiratory: No shortness of breath, no wheezing, no coughing Hospitalist Physical - Physical exam Narrative exam: General.: Appears well, no distress, nontoxic HEENT: Moist mucous membranes, extraocular muscles intact, no lymphadenopathy Neck: supple Cardiac: S1-S2 heard Lungs: clear to auscultation bilaterally Abdomen: soft , nontender, nondistended, bowel sounds positive Extremities: left foot redness and swelling, left 4th toe is kapoor, foul smelling , and appears gangrenous Skin: no rash or lesions Neurologic: no gross focal deficits Psych: appropriate behavior, appropriate mood, corporative, judgment intact - Constitutional Vitals: Temp Pulse Resp BP Pulse Ox 99.2 F 89 18 142/85 94 06/27/17 07:30 06/27/17 08:02 06/27/17 08:02 06/27/17 08:02 06/27/17 08:02 General appearance: Present: no acute distress Results - Labs CBC & Chem 7: 06/26/17 18:35 06/25/17 01:24 Labs: Laboratory Last Values WBC 12.7 K/mm3 (4.5-11.0) H 06/26/17 18:35 RBC 4.41 M/mm3 (3.65-5.03) 06/26/17 18:35 Hgb 12.0 gm/dl (10.1-14.3) 06/26/17 18:35 Hct 36.9 % (30.3-42.9) 06/26/17 18:35 MCV 84 fl (79-97) 06/26/17 18:35 MCH 27 pg (28-32) L 06/26/17 18:35 MCHC 33 % (30-34) 06/26/17 18:35 RDW 14.6 % (13.2-15.2) 06/26/17 18:35 Plt Count 555 K/mm3 (140-440) H 06/26/17 18:35 Lymph % (Auto) 17.2 % (13.4-35.0) 06/26/17 18:35 [place] % (Auto) 6.2 % (0.0-7.3) 06/26/17 18:35 Eos % (Auto) 2.3 % (0.0-4.3) 06/26/17 18:35 Baso % (Auto) 1.0 % (0.0-1.8) 06/26/17 18:35 Lymph # 2.2 K/mm3 (1.2-5.4) 06/26/17 18:35 [place] # 0.8 K/mm3 (0.0-0.8) 06/26/17 18:35 Eos # 0.3 K/mm3 (0.0-0.4) 06/26/17 18:35 Baso # 0.1 K/mm3 (0.0-0.1) 06/26/17 18:35 Seg Neutrophils % 73.3 % (40.0-70.0) H 06/26/17 18:35 Seg Neutrophils # 9.3 K/mm3 (1.8-7.7) H 06/26/17 18:35 ESR 55 mm/Hr (0-20) 06/23/17 21:59 VBG pH 7.338 (7.320-7.420) 06/23/17 13:59 Sodium 133 mmol/L (137-145) L 06/25/17 01:24 Potassium 3.8 mmol/L (3.6-5.0) 06/25/17 01:24 Chloride 100.3 mmol/L (98-107) 06/25/17 01:24 Carbon Dioxide 24 mmol/L (22-30) 06/25/17 01:24 Anion Gap 13 mmol/L 06/25/17 01:24 BUN 16 mg/dL (7-17) 06/25/17 01:24 Creatinine 0.6 mg/dL (0.7-1.2) L 06/25/17 01:24 Estimated GFR > 60 ml/min 06/25/17 01:24 BUN/Creatinine Ratio 27 % 06/25/17 01:24 Glucose 190 mg/dL (65-100) H 06/25/17 01:24 POC Glucose 93 (70-105) 06/27/17 07:26 Lactic Acid 0.70 mmol/L (0.7-2.0) 06/24/17 04:28 Calcium 7.9 mg/dL (8.4-10.2) L 06/25/17 01:24 Phosphorus 3.20 mg/dL (2.5-4.5) D 06/24/17 04:28 Magnesium 1.90 mg/dL (1.7-2.3) 06/24/17 04:28 Total Bilirubin 0.20 mg/dL (0.1-1.2) 06/23/17 13:59 AST 17 units/L (5-40) 06/23/17 13:59 ALT 16 units/L (7-56) 06/23/17 13:59 Alkaline Phosphatase 140 units/L (35-129) H 06/23/17 13:59 Total Creatine Kinase 56 units/L (30-135) 06/23/17 21:59 C-Reactive Protein 9.20 mg/dL (0.00-1.30) H 06/23/17 21:59 Total Protein 8.1 g/dL (6.3-8.2) 06/23/17 13:59 Albumin 2.8 g/dL (3.9-5) L 06/23/17 13:59 Albumin/Globulin Ratio 0.5 % 06/23/17 13:59 Urine Color Yellow (Yellow) 06/23/17 23:59 Urine Turbidity Clear (Clear) 06/23/17 23:59 Urine pH 5.0 (5.0-7.0) 06/23/17 23:59 Ur Specific [place] 1.023 (1.003-1.030) 06/23/17 23:59 Urine Protein >500 mg/dL (Negative) 06/23/17 23:59 Urine Glucose (UA) >=500 mg/dL (Negative) 06/23/17 23:59 Urine Ketones Neg mg/dL (Negative) 06/23/17 23:59 Urine Blood Sm (Negative) 06/23/17 23:59 Urine Nitrite Neg (Negative) 06/23/17 23:59 Urine Bilirubin Neg (Negative) 06/23/17 23:59 Urine Urobilinogen < 2.0 mg/dL (<2.0) 06/23/17 23:59 Ur Leukocyte Esterase Neg (Negative) 06/23/17 23:59 Urine WBC (Auto) 5.0 /HPF (0.0-6.0) 06/23/17 23:59 Urine RBC (Auto) 2.0 /HPF (0.0-6.0) 06/23/17 23:59 U Epithel Cells (Auto) 3.0 /HPF (0-13.0) 06/23/17 23:59 Urine Bacteria (Auto) 4+ /HPF (Negative) 06/23/17 23:59 Urine Mucus Few /HPF 06/23/17 23:59 Vancomycin Trough 19.7 ug/mL (5.0-20.0) 06/25/17 19:49
[2017-06-27] MEDS: VANCOMYCIN/NS 1 GM/250 ML 1 GM/250 ML BAG IV SCH ×2 (11:21→21:48)
--- NOTE | 2017-06-27 13:45 | Progress Note ---
Assessment and Plan Assessment: 1) Sepsis: better. Etiology - left foot diabetic foot infection. CRP=9.2. 2) Left foot diabetic foot infection with 4th toe ulcer -MRI showed 4th toe osteomyelitis, myositis and cellulitis -dopplers revealed "non-hemodynamically significant stenosis of the left popliteal artery 3) DM - uncontrolled on DKA Plan: -pt needs debridement - please send deep tissue cx -revascularization procedure of the left leg on Thursday -if not amputation then she needs IV abx for 6 weeks -continue zosyn and vanco I am covering the weekend Thank you Dr Plascencia for your consultation, will follow up with you. Florencia Parekh MD Infectious Diseases Specialist [facility] [id number] [phone] O [phone] Subjective Date of service: 06/27/17 Principal diagnosis: diabetic food infection/osteomyelitis Interval history: Feels ok no fever. Microbiology: Blood cultures: 06/23 ngtd Current Antimicrobials: Zosyn 06/24 Vancomycin 06/23 Objective - Exam Narrative Exam: General appearance: Alert in NAD, conversant Eyes: anicteric sclerae, moist conjunctivae; no lid-lag; PERRLA HENT: Atraumatic; oropharynx clear with moist mucous membranes and no mucosal ulcerations/no oral thrush; normal hard and soft palate. Normal external ears. Neck: Trachea midline; supple, no thyromegaly or lymphadenopathy Lungs: CTA, with normal respiratory effort and no intercostal retractions CV: RRR, no murmurs Abdomen: Soft, non-tender; no masses or hepatosplenomegaly Extremities: left 4th toe discoloration, left 1st toe ulcer, fore foot erythema Skin: Normal temperature, turgor and texture; no rash, ulcers or subcutaneous nodules Psych: Appropriate affect, alert and oriented to person, place and time. Neuro: alert and oriented x 3. Moving all extermities Lines: No CVL / PICC - Constitutional Vitals: Vital Signs Temp Pulse Resp BP Pulse Ox 99.2 F 89 18 142/85 94 06/27/17 07:30 06/27/17 08:02 06/27/17 08:02 06/27/17 08:02 06/27/17 08:02 Temperature -Last 24 Hours Temperature 99.2 F Temperature 99.7 F Temperature 99.3 F - Labs CBC & Chem 7: 06/26/17 18:35 06/25/17 01:24 Labs: Abnormal lab results 06/26/17 06/26/17 06/26/17 Range/Units 17:38 18:35 21:02 WBC 12.7 H (4.5-11.0) K/mm3 MCH 27 L (28-32) pg Plt Count 555 H (140-440) K/mm3 Seg Neutrophils % 73.3 H (40.0-70.0) % Seg Neutrophils # 9.3 H (1.8-7.7) K/mm3 POC Glucose 281 H 332 H (70-105) 06/27/17 Range/Units 11:43 WBC (4.5-11.0) K/mm3 MCH (28-32) pg Plt Count (140-440) K/mm3 Seg Neutrophils % (40.0-70.0) % Seg Neutrophils # (1.8-7.7) K/mm3 POC Glucose 184 H (70-105)
[2017-06-27] MEDS: LEVEMIR SUB-Q SCH (21:46)
[2017-06-28] MEDS: ZOSYN/NS 4.5GM/100ML 4.5 GM/100 ML VIAL IV SCH ×3 (06:55→21:07)
[2017-06-28] MEDS: NOVOLOG SUB-Q SCH ×4 (08:13→22:23)
[2017-06-28] MEDS: VANCOMYCIN/NS 1 GM/250 ML 1 GM/250 ML BAG IV SCH ×2 (10:26→21:07)
--- NOTE | 2017-06-28 11:03 | Event Note ---
Date: 06/28/17 Patient will be scheduled for revascularization procedure tomorrow of her left leg.
--- NOTE | 2017-06-28 13:17 | Progress Note ---
Assessment and Plan Assessment and plan: 56 YO Female with HTN, DM presents to ED for evaluation. She has a history of picking off, plucking of her toenails. She's had previous infections in her right foot., She admits that she stopped of all the toenails in her left foot. And over the course of 2 weeks he developed swelling redness in her left foot Sepsis Continue sepsis protocol Accelerated hypertension Optimize blood pressure medications Osteomyelitis of left fourth toe Continue IV antibiotics, will need surgical debridement versus amputation Case discussed with infectious disease consultants will need 6 to 8 weeks of IV abx Left fourth toe wet gangrene Case discussed with vascular surgery Arterial duplex shows stenosis of left popliteal artery We will need revascularization procedure most likely on Thursday Metabolic acidosis Treat sepsis, supportive care, IVF, Uncontrolled diabetes/type II Continue insulins, optimize them DVT prophylaxis Current Visit: Yes Status: Acute History Interval history: She states that she has minimal pain in her left foot because she has poor sensation in it. Admits that she picked off all her toenails as a bad habit. Left foot is still swollen, the swelling is decreasing, redness is decreasing. There is still spell small coming from the left fourth toe Review of systems Constitutional: No fevers, no malaise, no joint pains CVS: No chest pain, no orthopnea, no dyspnea on exertion, no pedal edema GI: No abdominal pain, no diarrhea, no vomiting, no constipation Respiratory: No shortness of breath, no wheezing, no coughing Hospitalist Physical - Physical exam Narrative exam: General.: Appears well, no distress, nontoxic HEENT: Moist mucous membranes, extraocular muscles intact, no lymphadenopathy Neck: supple Cardiac: S1-S2 heard Lungs: clear to auscultation bilaterally Abdomen: soft , nontender, nondistended, bowel sounds positive Extremities: left foot redness and swelling, left 4th toe is kapoor, foul smelling , and appears gangrenous Skin: no rash or lesions Neurologic: no gross focal deficits Psych: appropriate behavior, appropriate mood, corporative, judgment intact - Constitutional Vitals: Temp Pulse Resp BP Pulse Ox 99.1 F 89 18 176/89 98 06/28/17 12:30 06/28/17 12:30 06/28/17 12:30 06/28/17 12:30 06/28/17 12:30 General appearance: Present: no acute distress Results - Labs CBC & Chem 7: 06/26/17 18:35 06/25/17 01:24 Labs: Laboratory Last Values WBC 12.7 K/mm3 (4.5-11.0) H 06/26/17 18:35 RBC 4.41 M/mm3 (3.65-5.03) 06/26/17 18:35 Hgb 12.0 gm/dl (10.1-14.3) 06/26/17 18:35 Hct 36.9 % (30.3-42.9) 06/26/17 18:35 MCV 84 fl (79-97) 06/26/17 18:35 MCH 27 pg (28-32) L 06/26/17 18:35 MCHC 33 % (30-34) 06/26/17 18:35 RDW 14.6 % (13.2-15.2) 06/26/17 18:35 Plt Count 555 K/mm3 (140-440) H 06/26/17 18:35 Lymph % (Auto) 17.2 % (13.4-35.0) 06/26/17 18:35 [place] % (Auto) 6.2 % (0.0-7.3) 06/26/17 18:35 Eos % (Auto) 2.3 % (0.0-4.3) 06/26/17 18:35 Baso % (Auto) 1.0 % (0.0-1.8) 06/26/17 18:35 Lymph # 2.2 K/mm3 (1.2-5.4) 06/26/17 18:35 [place] # 0.8 K/mm3 (0.0-0.8) 06/26/17 18:35 Eos # 0.3 K/mm3 (0.0-0.4) 06/26/17 18:35 Baso # 0.1 K/mm3 (0.0-0.1) 06/26/17 18:35 Seg Neutrophils % 73.3 % (40.0-70.0) H 06/26/17 18:35 Seg Neutrophils # 9.3 K/mm3 (1.8-7.7) H 06/26/17 18:35 ESR 55 mm/Hr (0-20) 06/23/17 21:59 VBG pH 7.338 (7.320-7.420) 06/23/17 13:59 Sodium 133 mmol/L (137-145) L 06/25/17 01:24 Potassium 3.8 mmol/L (3.6-5.0) 06/25/17 01:24 Chloride 100.3 mmol/L (98-107) 06/25/17 01:24 Carbon Dioxide 24 mmol/L (22-30) 06/25/17 01:24 Anion Gap 13 mmol/L 06/25/17 01:24 BUN 16 mg/dL (7-17) 06/25/17 01:24 Creatinine 0.6 mg/dL (0.7-1.2) L 06/25/17 01:24 Estimated GFR > 60 ml/min 06/25/17 01:24 BUN/Creatinine Ratio 27 % 06/25/17 01:24 Glucose 190 mg/dL (65-100) H 06/25/17 01:24 POC Glucose 234 (70-105) H 06/28/17 12:07 Lactic Acid 0.70 mmol/L (0.7-2.0) 06/24/17 04:28 Calcium 7.9 mg/dL (8.4-10.2) L 06/25/17 01:24 Phosphorus 3.20 mg/dL (2.5-4.5) D 06/24/17 04:28 Magnesium 1.90 mg/dL (1.7-2.3) 06/24/17 04:28 Total Bilirubin 0.20 mg/dL (0.1-1.2) 06/23/17 13:59 AST 17 units/L (5-40) 06/23/17 13:59 ALT 16 units/L (7-56) 06/23/17 13:59 Alkaline Phosphatase 140 units/L (35-129) H 06/23/17 13:59 Total Creatine Kinase 56 units/L (30-135) 06/23/17 21:59 C-Reactive Protein 9.20 mg/dL (0.00-1.30) H 06/23/17 21:59 Total Protein 8.1 g/dL (6.3-8.2) 06/23/17 13:59 Albumin 2.8 g/dL (3.9-5) L 06/23/17 13:59 Albumin/Globulin Ratio 0.5 % 06/23/17 13:59 Urine Color Yellow (Yellow) 06/23/17 23:59 Urine Turbidity Clear (Clear) 06/23/17 23:59 Urine pH 5.0 (5.0-7.0) 06/23/17 23:59 Ur Specific [place] 1.023 (1.003-1.030) 06/23/17 23:59 Urine Protein >500 mg/dL (Negative) 06/23/17 23:59 Urine Glucose (UA) >=500 mg/dL (Negative) 06/23/17 23:59 Urine Ketones Neg mg/dL (Negative) 06/23/17 23:59 Urine Blood Sm (Negative) 06/23/17 23:59 Urine Nitrite Neg (Negative) 06/23/17 23:59 Urine Bilirubin Neg (Negative) 06/23/17 23:59 Urine Urobilinogen < 2.0 mg/dL (<2.0) 06/23/17 23:59 Ur Leukocyte Esterase Neg (Negative) 06/23/17 23:59 Urine WBC (Auto) 5.0 /HPF (0.0-6.0) 06/23/17 23:59 Urine RBC (Auto) 2.0 /HPF (0.0-6.0) 06/23/17 23:59 U Epithel Cells (Auto) 3.0 /HPF (0-13.0) 06/23/17 23:59 Urine Bacteria (Auto) 4+ /HPF (Negative) 06/23/17 23:59 Urine Mucus Few /HPF 06/23/17 23:59 Vancomycin Trough 19.7 ug/mL (5.0-20.0) 06/25/17 19:49
--- NOTE | 2017-06-28 15:08 | Progress Note ---
Assessment and Plan Assessment: 1) Sepsis: better. Etiology - left foot diabetic foot infection. CRP=9.2. 2) Left foot diabetic foot infection with 4th toe ulcer -MRI showed 4th toe osteomyelitis, myositis and cellulitis -dopplers revealed "non-hemodynamically significant stenosis of the left popliteal artery 3) DM - uncontrolled on DKA Plan: -pt needs debridement - please send deep tissue cx -f/u wound cultures -revascularization procedure of the left leg on Thursday -if not amputation then she needs IV abx for 6 weeks -continue zosyn and vanco Thank you Dr Plascencia for your consultation, will follow up with you. Florencia Parekh MD Infectious Diseases Specialist [facility] M [phone] O [phone] Subjective Date of service: 06/28/17 Principal diagnosis: diabetic food infection/osteomyelitis Interval history: Feels ok no fever. Microbiology: Blood cultures: 06/23 ngtd Wound cx +GPC Current Antimicrobials: Zosyn 06/24 Vancomycin 06/23 Objective - Exam Narrative Exam: General appearance: Alert in NAD, conversant Eyes: anicteric sclerae, moist conjunctivae; no lid-lag; PERRLA HENT: Atraumatic; oropharynx clear with moist mucous membranes and no mucosal ulcerations/no oral thrush; normal hard and soft palate. Normal external ears. Neck: Trachea midline; supple, no thyromegaly or lymphadenopathy Lungs: CTA, with normal respiratory effort and no intercostal retractions CV: RRR, no murmurs Abdomen: Soft, non-tender; no masses or hepatosplenomegaly Extremities: left 4th toe discoloration, left 1st toe ulcer, fore foot erythema Skin: Normal temperature, turgor and texture; no rash, ulcers or subcutaneous nodules Psych: Appropriate affect, alert and oriented to person, place and time. Neuro: alert and oriented x 3. Moving all extermities Lines: No CVL / PICC - Constitutional Vitals: Vital Signs Temp Pulse Resp BP Pulse Ox 99.1 F 89 18 176/89 98 06/28/17 12:30 06/28/17 12:30 06/28/17 12:30 06/28/17 12:30 06/28/17 12:30 Temperature -Last 24 Hours Temperature 99.1 F Temperature 98.4 F Temperature 97.4 F Temperature 98.1 F Temperature 98.1 F - Labs CBC & Chem 7: 06/26/17 18:35 06/25/17 01:24 Labs: Abnormal lab results 06/27/17 06/27/17 06/28/17 Range/Units 17:09 20:55 12:07 POC Glucose 287 H 276 H 234 H (70-105)
[2017-06-28] MEDS ORDERED: PERCOCET 5/325 PO PRN (18:20)
[2017-06-28] MEDS ORDERED: APRESOLINE IV PRN (18:20)
[2017-06-28] MEDS: ZESTRIL PO SCH (20:50)
[2017-06-28] MEDS: LEVEMIR SUB-Q SCH (22:23)
[2017-06-29 06:04] LABS: Basophils % (Auto) 1.2 % (0.0-1.8); Eosinophils % (Auto) 3.8 % (0.0-4.3); Hematocrit 32.8 % (30.3-42.9); Hemoglobin 11.2 gm/dl (10.1-14.3); Mean Corpuscular HGB Conc 34 % (30-34); Mean Corpuscular Hemoglobin 28 pg (28-32); Mean Corpuscular Volume 82 fl (79-97); Platelet Count 568 K/mm3 (140-440); Red Blood Count 4.02 M/mm3 (3.65-5.03); Red Cell Distribution Width 14.4 % (13.2-15.2); White Blood Count 9.8 K/mm3 (4.5-11.0)
[2017-06-29 06:16] LABS: INR 0.86 (0.87-1.13)
[2017-06-29 06:17] LABS: Partial Thromboplastin Time 32.1 Sec. (24.2-36.6)
[2017-06-29 06:22] LABS: Anion Gap 16 mmol/L; BUN/Creatinine Ratio 16; Blood Urea Nitrogen 13 mg/dL (7-17); Calcium 8.6 mg/dL (8.4-10.2); Carbon Dioxide 24 mmol/L (22-30); Chloride 104.1 mmol/L (98-107); Glucose 221 mg/dL (65-100); Potassium 3.7 mmol/L (3.6-5.0); Sodium 140 mmol/L (137-145)
[2017-06-29] MEDS: ZOSYN/NS 4.5GM/100ML 4.5 GM/100 ML VIAL IV SCH ×3 (06:33→21:05)
[2017-06-29] MEDS: NOVOLOG SUB-Q SCH ×4 (08:47→22:08)
[2017-06-29] MEDS: VANCOMYCIN/NS 1 GM/250 ML 1 GM/250 ML BAG IV SCH ×2 (10:22→21:06)
[2017-06-29] MEDS: ZESTRIL PO SCH (10:23)
--- NOTE | 2017-06-29 11:31 | Progress Note ---
Assessment and Plan Assessment: 1) Sepsis: better. Etiology - left foot diabetic foot infection. CRP=9.2. 2) Left foot diabetic foot infection with 4th toe ulcer -MRI showed 4th toe osteomyelitis, myositis and cellulitis -dopplers revealed "non-hemodynamically significant stenosis of the left popliteal artery -Wound cx + Staph aureus and Beta hem Strep group B 3) DM - uncontrolled on DKA Plan: -contact isolation -pt needs debridement - please send deep tissue cx -f/u wound cultures -revascularization procedure of the left leg today -if not amputation then she needs IV abx for 6 weeks -continue zosyn and vanco Thank you Dr Plascencia for your consultation, will follow up with you. Florencia Parekh MD Infectious Diseases Specialist [facility] M [phone] O [phone] Subjective Date of service: 06/29/17 Principal diagnosis: diabetic food infection/osteomyelitis Interval history: Feels ok no fever. Microbiology: Blood cultures: 06/23 ngtd Wound cx + Staph aureus and Beta hem Strep group B Current Antimicrobials: Zosyn 06/24 Vancomycin 06/23 Objective - Exam Narrative Exam: General appearance: Alert in NAD, conversant Eyes: anicteric sclerae, moist conjunctivae; no lid-lag; PERRLA HENT: Atraumatic; oropharynx clear with moist mucous membranes and no mucosal ulcerations/no oral thrush; normal hard and soft palate. Normal external ears. Neck: Trachea midline; supple, no thyromegaly or lymphadenopathy Lungs: CTA, with normal respiratory effort and no intercostal retractions CV: RRR, no murmurs Abdomen: Soft, non-tender; no masses or hepatosplenomegaly Extremities: left 4th toe discoloration, left 1st toe ulcer, fore foot erythema Skin: Normal temperature, turgor and texture; no rash, ulcers or subcutaneous nodules Psych: Appropriate affect, alert and oriented to person, place and time. Neuro: alert and oriented x 3. Moving all extermities Lines: No CVL / PICC - Constitutional Vitals: Vital Signs Temp Pulse Resp BP Pulse Ox 98.6 F 78 18 151/81 96 06/29/17 07:59 06/29/17 07:59 06/29/17 07:59 06/29/17 07:59 06/29/17 07:59 Temperature -Last 24 Hours Temperature 98.6 F Temperature 97.1 F Temperature 99.1 F Temperature 99.7 F Temperature 98.8 F Temperature 99.1 F - Labs CBC & Chem 7: 06/29/17 05:31 06/29/17 05:31 Labs: Abnormal lab results 06/28/17 06/28/17 06/28/17 Range/Units 12:07 17:14 22:14 Plt Count (140-440) K/mm3 Seg Neutrophils % (40.0-70.0) % PT (12.2-14.9) Sec. INR (0.87-1.13) Glucose (65-100) mg/dL POC Glucose 234 H 190 H 288 H (70-105) 06/29/17 06/29/17 06/29/17 Range/Units 05:31 05:31 05:31 Plt Count 568 H (140-440) K/mm3 Seg Neutrophils % 71.5 H (40.0-70.0) % PT 12.1 L (12.2-14.9) Sec. INR 0.86 L (0.87-1.13) Glucose 221 H (65-100) mg/dL POC Glucose (70-105) 06/29/17 Range/Units 06:16 Plt Count (140-440) K/mm3 Seg Neutrophils % (40.0-70.0) % PT (12.2-14.9) Sec. INR (0.87-1.13) Glucose (65-100) mg/dL POC Glucose 235 H (70-105)
--- NOTE | 2017-06-29 12:40 | Progress Note ---
Assessment and Plan Assessment and plan: 56 YO Female with HTN, DM presents to ED for evaluation. She has a history of picking off, plucking of her toenails. She's had previous infections in her right foot., She admits that she plucked off all the toenails in her left foot. And over the course of 2 weeks she developed swelling redness in her left foot Sepsis Continue sepsis protocol Accelerated hypertension Optimize blood pressure medications Osteomyelitis of left fourth toe Continue IV antibiotics, will need surgical debridement versus amputation Case discussed with infectious disease consultants will need 6 to 8 weeks of IV abx Left fourth toe wet gangrene/PAD Case discussed with vascular surgery Arterial duplex shows stenosis of left popliteal artery for angioplasty today Metabolic acidosis Treat sepsis, supportive care, IVF, Uncontrolled diabetes/type II Continue insulins, optimize them DVT prophylaxis Current Visit: Yes Status: Acute History Interval history: She states that she has minimal pain in her left foot because she has poor sensation in it. Admits that she picked off all her toenails as a bad habit. Left foot is still swollen, the swelling is decreasing, redness is decreasing. There is still spell small coming from the left fourth toe Review of systems Constitutional: No fevers, no malaise, no joint pains CVS: No chest pain, no orthopnea, no dyspnea on exertion, no pedal edema GI: No abdominal pain, no diarrhea, no vomiting, no constipation Respiratory: No shortness of breath, no wheezing, no coughing Hospitalist Physical - Physical exam Narrative exam: General.: Appears well, no distress, nontoxic HEENT: Moist mucous membranes, extraocular muscles intact, no lymphadenopathy Neck: supple Cardiac: S1-S2 heard Lungs: clear to auscultation bilaterally Abdomen: soft , nontender, nondistended, bowel sounds positive Extremities: left foot redness and swelling, left 4th toe is kapoor, foul smelling , and appears gangrenous Skin: no rash or lesions Neurologic: no gross focal deficits Psych: appropriate behavior, appropriate mood, corporative, judgment intact - Constitutional Vitals: Temp Pulse Resp BP Pulse Ox 98.6 F 78 18 151/81 96 06/29/17 07:59 06/29/17 07:59 06/29/17 07:59 06/29/17 07:59 06/29/17 07:59 General appearance: Present: no acute distress Results - Labs CBC & Chem 7: 06/29/17 05:31 06/29/17 05:31 Labs: Laboratory Last Values WBC 9.8 K/mm3 (4.5-11.0) 06/29/17 05:31 RBC 4.02 M/mm3 (3.65-5.03) 06/29/17 05:31 Hgb 11.2 gm/dl (10.1-14.3) 06/29/17 05:31 Hct 32.8 % (30.3-42.9) 06/29/17 05:31 MCV 82 fl (79-97) 06/29/17 05:31 MCH 28 pg (28-32) 06/29/17 05:31 MCHC 34 % (30-34) 06/29/17 05:31 RDW 14.4 % (13.2-15.2) 06/29/17 05:31 Plt Count 568 K/mm3 (140-440) H 06/29/17 05:31 Lymph % (Auto) 16.6 % (13.4-35.0) 06/29/17 05:31 [place] % (Auto) 6.9 % (0.0-7.3) 06/29/17 05:31 Eos % (Auto) 3.8 % (0.0-4.3) 06/29/17 05:31 Baso % (Auto) 1.2 % (0.0-1.8) 06/29/17 05:31 Lymph # 1.6 K/mm3 (1.2-5.4) 06/29/17 05:31 [place] # 0.7 K/mm3 (0.0-0.8) 06/29/17 05:31 Eos # 0.4 K/mm3 (0.0-0.4) 06/29/17 05:31 Baso # 0.1 K/mm3 (0.0-0.1) 06/29/17 05:31 Seg Neutrophils % 71.5 % (40.0-70.0) H 06/29/17 05:31 Seg Neutrophils # 7.0 K/mm3 (1.8-7.7) 06/29/17 05:31 ESR 55 mm/Hr (0-20) 06/23/17 21:59 PT 12.1 Sec. (12.2-14.9) L 06/29/17 05:31 INR 0.86 (0.87-1.13) L 06/29/17 05:31 APTT 32.1 Sec. (24.2-36.6) 06/29/17 05:31 VBG pH 7.338 (7.320-7.420) 06/23/17 13:59 Sodium 140 mmol/L (137-145) D 06/29/17 05:31 Potassium 3.7 mmol/L (3.6-5.0) 06/29/17 05:31 Chloride 104.1 mmol/L (98-107) 06/29/17 05:31 Carbon Dioxide 24 mmol/L (22-30) 06/29/17 05:31 Anion Gap 16 mmol/L 06/29/17 05:31 BUN 13 mg/dL (7-17) 06/29/17 05:31 Creatinine 0.8 mg/dL (0.7-1.2) 06/29/17 05:31 Estimated GFR > 60 ml/min 06/29/17 05:31 BUN/Creatinine Ratio 16 % 06/29/17 05:31 Glucose 221 mg/dL (65-100) H 06/29/17 05:31 POC Glucose 171 (70-105) H 06/29/17 11:40 Lactic Acid 0.70 mmol/L (0.7-2.0) 06/24/17 04:28 Calcium 8.6 mg/dL (8.4-10.2) 06/29/17 05:31 Phosphorus 3.20 mg/dL (2.5-4.5) D 06/24/17 04:28 Magnesium 1.90 mg/dL (1.7-2.3) 06/24/17 04:28 Total Bilirubin 0.20 mg/dL (0.1-1.2) 06/23/17 13:59 AST 17 units/L (5-40) 06/23/17 13:59 ALT 16 units/L (7-56) 06/23/17 13:59 Alkaline Phosphatase 140 units/L (35-129) H 06/23/17 13:59 Total Creatine Kinase 56 units/L (30-135) 06/23/17 21:59 C-Reactive Protein 9.20 mg/dL (0.00-1.30) H 06/23/17 21:59 Total Protein 8.1 g/dL (6.3-8.2) 06/23/17 13:59 Albumin 2.8 g/dL (3.9-5) L 06/23/17 13:59 Albumin/Globulin Ratio 0.5 % 06/23/17 13:59 Urine Color Yellow (Yellow) 06/23/17 23:59 Urine Turbidity Clear (Clear) 06/23/17 23:59 Urine pH 5.0 (5.0-7.0) 06/23/17 23:59 Ur Specific [place] 1.023 (1.003-1.030) 06/23/17 23:59 Urine Protein >500 mg/dL (Negative) 06/23/17 23:59 Urine Glucose (UA) >=500 mg/dL (Negative) 06/23/17 23:59 Urine Ketones Neg mg/dL (Negative) 06/23/17 23:59 Urine Blood Sm (Negative) 06/23/17 23:59 Urine Nitrite Neg (Negative) 06/23/17 23:59 Urine Bilirubin Neg (Negative) 06/23/17 23:59 Urine Urobilinogen < 2.0 mg/dL (<2.0) 06/23/17 23:59 Ur Leukocyte Esterase Neg (Negative) 06/23/17 23:59 Urine WBC (Auto) 5.0 /HPF (0.0-6.0) 06/23/17 23:59 Urine RBC (Auto) 2.0 /HPF (0.0-6.0) 06/23/17 23:59 U Epithel Cells (Auto) 3.0 /HPF (0-13.0) 06/23/17 23:59 Urine Bacteria (Auto) 4+ /HPF (Negative) 06/23/17 23:59 Urine Mucus Few /HPF 06/23/17 23:59 Vancomycin Trough 19.7 ug/mL (5.0-20.0) 06/25/17 19:49
--- NOTE | 2017-06-29 14:47 | Progress Note ---
Assessment and Plan - Patient Problems (1) Cellulitis of left foot Current Visit: Yes Status: Acute (2) Sepsis affecting skin Current Visit: Yes Status: Acute Plan to address problem: 1) Awaiting vascular evaluation Subjective Date of service: 06/29/17 Patient Reports: Positive: no new complaints Objective Vital Signs - 12hr 06/29/17 06/29/17 06/29/17 03:41 07:59 12:52 Temperature 97.1 F L 98.6 F 99.0 F Pulse Rate 77 78 80 Respiratory 16 18 18 Rate Blood Pressure 145/84 151/81 155/87 O2 Sat by Pulse 96 96 97 Oximetry - Integumentary other (Left 4th toe is without change.) - Labs 06/29/17 05:31 06/29/17 05:31 Diabetes panel 06/29/17 Range/Units 05:31 Sodium 140 D (137-145) mmol/L Potassium 3.7 (3.6-5.0) mmol/L Chloride 104.1 (98-107) mmol/L Carbon Dioxide 24 (22-30) mmol/L BUN 13 (7-17) mg/dL Creatinine 0.8 (0.7-1.2) mg/dL Glucose 221 H (65-100) mg/dL Calcium 8.6 (8.4-10.2) mg/dL Calcium panel 06/29/17 Range/Units 05:31 Calcium 8.6 (8.4-10.2) mg/dL Pituitary panel 06/29/17 Range/Units 05:31 Sodium 140 D (137-145) mmol/L Potassium 3.7 (3.6-5.0) mmol/L Chloride 104.1 (98-107) mmol/L Carbon Dioxide 24 (22-30) mmol/L BUN 13 (7-17) mg/dL Creatinine 0.8 (0.7-1.2) mg/dL Glucose 221 H (65-100) mg/dL Calcium 8.6 (8.4-10.2) mg/dL Adrenal panel 06/29/17 Range/Units 05:31 Sodium 140 D (137-145) mmol/L Potassium 3.7 (3.6-5.0) mmol/L Chloride 104.1 (98-107) mmol/L Carbon Dioxide 24 (22-30) mmol/L BUN 13 (7-17) mg/dL Creatinine 0.8 (0.7-1.2) mg/dL Glucose 221 H (65-100) mg/dL Calcium 8.6 (8.4-10.2) mg/dL
[2017-06-29] MEDS ORDERED: HEPARIN/NS 5000 UNIT/500ML(CATH LAB) 1,000 ML IR ONE (16:53)
[2017-06-29] MEDS ORDERED: XYLOCAINE 2% INFILTRATI ONE (16:53)
[2017-06-29] MEDS ORDERED: NACL 0.9% 500 ML 500 ML ONE (16:53)
[2017-06-29] MEDS ORDERED: VERSED ONE (16:54)
[2017-06-29] MEDS ORDERED: ANCEF/STERILE WATER 2 GM/20 ML 0 GM/0 ML SYRINGE IV ONE (16:54)
[2017-06-29] MEDS ORDERED: HEPARIN 10,000 UNITS/10 ML ONE (16:54)
[2017-06-29] MEDS: SUBLIMAZE ONE ×2 (16:58→17:26)
[2017-06-29] MEDS ORDERED: NITROGLYCERIN SYRINGE 3 ML ONE ×2 (17:42→17:43)
--- NOTE | 2017-06-29 18:02 | Operative Report ---
Operative Report Operative Report: EXAM: LEFT LOWER EXTREMITY REVASCULARIZATION CLINICAL INDICATION: PATIENT WITH NONHEALING WOUNDS OF HER DISTAL PHALANGES. PVD WITH NONHEALING ULCERS I DATE: 06/29/2017 PROCEDURE: Following an expiration of the risks, benefits and alternatives; written informed consent was obtained. The patient was brought to the injury graphics suite and placed in supine position on the examination table. Initial ultrasound evaluation of her right groin devastated a patent right common femoral artery. The right groin was prepped and draped in the usual sterile fashion. 1% lidocaine was used for anesthesia. Under ultrasound guidance, the right common femoral artery was cannulated with a 7 cm 21-gauge needle.'s or place or when a guidewire was advanced centrally under fluoroscopy. The needle was removed and a micro-sheath placed. The 0.01 a guidewire was exchanged for a 0.035 guidewire and the microcytic C for a 5 [place] vascular sheath. A 5 [place] Omni flush catheter was advanced over the guidewire to the distal abdominal aorta. Angiography was performed this demonstrates a patent distal abdominal aorta with 30% stenosis involving the origin of the right common iliac artery. The left common iliac artery and external iliac arteries are widely patent. The bifurcation was crossed using the Omni flush catheter any 0.035 guidewire. Additional angiographic imaging was obtained in the left external iliac artery, left superficial femoral artery proximally and distally. This demonstrated widely patent left common femoral artery. Scattered areas of nonocclusive stenosis are present throughout the SFA. There is a 20% stenosis involving the popliteal. There is a high origin of the anterior tibial artery. At this point Omni flush catheter was exchanged for a 4 [place] vertebral catheter and additional angiography performed with the catheter in the popliteal artery. The anterior tibial artery has multifocal 99% stenoses just distal to its origin. The anterior tibial artery is dominant vessel to the foot. There is a high takeoff of the anterior tibial artery and the popliteal fossa. The tibial peroneal trunk is stenotic. The peroneal artery is occluded just distal to the origin. Multifocal 90% stenoses are present within the origin of the posterior tibial artery. The vertebral catheter and a choice PT guidewire were then advanced past the stenoses in the anterior tibial artery. Angioplasty was initially performed using a 3 mm balloon insufflated to nominal atmospheres for 3 minutes. Post insufflation imaging demonstrated a reduction stenosis to 30%. A 4 mm drug- coated balloon was sent placed across the lesions and insufflated for an additional 3 minutes. This reduced the stenosis to less than 20%. The vertebral catheter and choice PT guidewire were then advanced past the stenoses in the tibioperoneal trunk and proximal posterior tibial artery. The catheter was removed. Angioplasty of the tibioperoneal trunk and posterior tibial artery was performed using a 2.5/2.0 x 210 mm balloon insufflated in nominal atmospheres for 3 minutes. Procedures C imaging demonstrated reduction of the stenoses to less than 20%. At this point, the catheter, guidewires and she swerved removed and hemostasis achieved in the left groin using a Perclose arterial closure device. A compression dressing was also placed. The patient tolerated the procedure well. There were no immediate post procedure palpitations. Conscious sedation was performed under the guidance of radiologic nursing. Continuous cardiopulmonary monitoring was utilized. IMPRESSION: 1) Left lower extremity angiogram demonstrating multifocal 99% stenoses within the proximal anterior tibial artery plan multifocal proximal stenoses within the tibioperoneal trunk and posterior tibial artery. The peroneal artery is occluded. 2) Revascularization of the anterior tibial artery using angioplasty and drug-coated balloon. 3) Revascularization of the posterior tibial artery and tibioperoneal trunk using angioplasty.
[2017-06-29] MEDS: LEVEMIR SUB-Q SCH (22:10)
[2017-06-30] MEDS: ZOSYN/NS 4.5GM/100ML 4.5 GM/100 ML VIAL IV SCH ×3 (05:42→21:27)
[2017-06-30] MEDS: NOVOLOG SUB-Q SCH ×4 (08:54→22:47)
[2017-06-30] MEDS: ZESTRIL PO SCH (09:09)
[2017-06-30] MEDS: NORVASC PO SCH (09:10)
[2017-06-30] MEDS: VANCOMYCIN/NS 1 GM/250 ML 1 GM/250 ML BAG IV SCH (09:11)
--- NOTE | 2017-06-30 14:14 | Progress Note ---
Assessment and Plan - Patient Problems (1) Cellulitis of left foot Current Visit: Yes Status: Acute (2) Sepsis affecting skin Current Visit: Yes Status: Acute Plan to address problem: 1) NPO after MN 2) I&D/debridement in the OR tomorrow Subjective Date of service: 06/30/17 Patient Reports: Positive: no new complaints (S/p successful angioplasty yesterday) Objective Vital Signs - 12hr 06/30/17 06/30/17 06/30/17 03:22 08:33 09:09 Temperature 98.1 F 98.7 F Pulse Rate 81 81 81 Respiratory 14 20 Rate Blood Pressure 144/86 142/81 142/81 O2 Sat by Pulse 95 96 Oximetry 06/30/17 09:10 Temperature Pulse Rate 81 Respiratory Rate Blood Pressure 142/81 O2 Sat by Pulse Oximetry - Integumentary other (Left 4th toe is without change.) - Labs 06/29/17 05:31 06/29/17 05:31
--- NOTE | 2017-06-30 14:23 | Progress Note ---
Assessment and Plan Pt s/p revascularization to her LLE to improve chances of wound healing. Okay to proceed with wound debridement from a vascular surgery stand point. Pt is NPO for 07/01/17 likely in prep for debridement. Pt will need to be started on Plavix if no objection from Wound Care. Otherwise , it can be started after surgical debridement. - Patient Problems (1) Atherosclerosis of [place] arteries of the extremities with ulceration Current Visit: Yes Status: Acute Subjective Date of service: 06/30/17 Principal diagnosis: diabetic food infection/osteomyelitis Interval history: Pt awake without complaint at present. Objective - Constitutional Vitals: Vital Signs - 12hr 06/30/17 06/30/17 06/30/17 03:22 08:33 09:09 Temperature 98.1 F 98.7 F Pulse Rate 81 81 81 Respiratory 14 20 Rate Blood Pressure 144/86 142/81 142/81 O2 Sat by Pulse 95 96 Oximetry 06/30/17 09:10 Temperature Pulse Rate 81 Respiratory Rate Blood Pressure 142/81 O2 Sat by Pulse Oximetry General appearance: Present: no acute distress - EENT Eyes: EOM intact ENT: hearing intact - Respiratory Respiratory effort: normal Extremities: no ischemia, normal temperature, abnormal (Left foot warm and bandaged.) Extremity abnormal: other (right groin bandaged, no overt swelling, erythema, or drainage appreciated.) - Neurologic Neurologic: no focal deficits - Psychiatric Psychiatric: appropriate mood/affect, intact judgment & insight, cooperative - Labs CBC & Chem 7: 06/29/17 05:31 06/29/17 05:31 Labs: Abnormal lab results 06/29/17 06/30/17 06/30/17 Range/Units 21:18 05:18 08:47 POC Glucose 203 H 165 H (70-105) Vancomycin Trough 25.9 H (5.0-20.0) ug/mL 06/30/17 Range/Units 11:57 POC Glucose 229 H (70-105) Vancomycin Trough (5.0-20.0) ug/mL
--- NOTE | 2017-06-30 16:31 | Progress Note ---
Assessment and Plan Assessment and plan: 56 YO Female with HTN, DM presents to ED for evaluation. She has a history of picking off, plucking of her toenails. She's had previous infections in her right foot., She admits that she plucked off all the toenails in her left foot. And over the course of 2 weeks she developed swelling redness in her left foot Sepsis Continue sepsis protocol Accelerated hypertension Optimize blood pressure medications Osteomyelitis of left fourth toe Continue IV antibiotics, will need surgical debridement versus amputation Case discussed with infectious disease eyewear consultant patient does problem here is Jared that he is having is because Jared is using a third green party nts will need 6 to 8 weeks of IV abx Left fourth toe wet gangrene/PAD Case discussed with vascular surgery Arterial duplex shows stenosis of left popliteal artery for angioplasty today Metabolic acidosis Treat sepsis, supportive care, IVF, Uncontrolled diabetes/type II Continue insulins, optimize them DVT prophylaxis Current Visit: Yes Status: Acute History Interval history: She states that she has minimal pain in her left foot because she has poor sensation in it. Admits that she picked off all her toenails as a bad habit. Left foot is still swollen, the swelling is decreasing, redness is decreasing. There is still spell small coming from the left fourth toe Review of systems Constitutional: No fevers, no malaise, no joint pains CVS: No chest pain, no orthopnea, no dyspnea on exertion, no pedal edema GI: No abdominal pain, no diarrhea, no vomiting, no constipation Respiratory: No shortness of breath, no wheezing, no coughing Hospitalist Physical - Physical exam Narrative exam: General.: Appears well, no distress, nontoxic HEENT: Moist mucous membranes, extraocular muscles intact, no lymphadenopathy Neck: supple Cardiac: S1-S2 heard Lungs: clear to auscultation bilaterally Abdomen: soft , nontender, nondistended, bowel sounds positive Extremities: left foot redness and swelling, left 4th toe is kapoor, foul smelling , and appears gangrenous Skin: no rash or lesions Neurologic: no gross focal deficits Psych: appropriate behavior, appropriate mood, corporative, judgment intact - Constitutional Vitals: Temp Pulse Resp BP Pulse Ox 97.9 F 78 20 147/86 99 06/30/17 11:53 06/30/17 11:53 06/30/17 11:53 06/30/17 11:53 06/30/17 11:53 General appearance: Present: no acute distress Results - Labs CBC & Chem 7: 06/29/17 05:31 06/29/17 05:31 Labs: Laboratory Last Values WBC 9.8 K/mm3 (4.5-11.0) 06/29/17 05:31 RBC 4.02 M/mm3 (3.65-5.03) 06/29/17 05:31 Hgb 11.2 gm/dl (10.1-14.3) 06/29/17 05:31 Hct 32.8 % (30.3-42.9) 06/29/17 05:31 MCV 82 fl (79-97) 06/29/17 05:31 MCH 28 pg (28-32) 06/29/17 05:31 MCHC 34 % (30-34) 06/29/17 05:31 RDW 14.4 % (13.2-15.2) 06/29/17 05:31 Plt Count 568 K/mm3 (140-440) H 06/29/17 05:31 Lymph % (Auto) 16.6 % (13.4-35.0) 06/29/17 05:31 [place] % (Auto) 6.9 % (0.0-7.3) 06/29/17 05:31 Eos % (Auto) 3.8 % (0.0-4.3) 06/29/17 05:31 Baso % (Auto) 1.2 % (0.0-1.8) 06/29/17 05:31 Lymph # 1.6 K/mm3 (1.2-5.4) 06/29/17 05:31 [place] # 0.7 K/mm3 (0.0-0.8) 06/29/17 05:31 Eos # 0.4 K/mm3 (0.0-0.4) 06/29/17 05:31 Baso # 0.1 K/mm3 (0.0-0.1) 06/29/17 05:31 Seg Neutrophils % 71.5 % (40.0-70.0) H 06/29/17 05:31 Seg Neutrophils # 7.0 K/mm3 (1.8-7.7) 06/29/17 05:31 ESR 55 mm/Hr (0-20) 06/23/17 21:59 PT 12.1 Sec. (12.2-14.9) L 06/29/17 05:31 INR 0.86 (0.87-1.13) L 06/29/17 05:31 APTT 32.1 Sec. (24.2-36.6) 06/29/17 05:31 VBG pH 7.338 (7.320-7.420) 06/23/17 13:59 Sodium 140 mmol/L (137-145) D 06/29/17 05:31 Potassium 3.7 mmol/L (3.6-5.0) 06/29/17 05:31 Chloride 104.1 mmol/L (98-107) 06/29/17 05:31 Carbon Dioxide 24 mmol/L (22-30) 06/29/17 05:31 Anion Gap 16 mmol/L 06/29/17 05:31 BUN 13 mg/dL (7-17) 06/29/17 05:31 Creatinine 0.8 mg/dL (0.7-1.2) 06/29/17 05:31 Estimated GFR > 60 ml/min 06/29/17 05:31 BUN/Creatinine Ratio 16 % 06/29/17 05:31 Glucose 221 mg/dL (65-100) H 06/29/17 05:31 POC Glucose 229 (70-105) H 06/30/17 11:57 Lactic Acid 0.70 mmol/L (0.7-2.0) 06/24/17 04:28 Calcium 8.6 mg/dL (8.4-10.2) 06/29/17 05:31 Phosphorus 3.20 mg/dL (2.5-4.5) D 06/24/17 04:28 Magnesium 1.90 mg/dL (1.7-2.3) 06/24/17 04:28 Total Bilirubin 0.20 mg/dL (0.1-1.2) 06/23/17 13:59 AST 17 units/L (5-40) 06/23/17 13:59 ALT 16 units/L (7-56) 06/23/17 13:59 Alkaline Phosphatase 140 units/L (35-129) H 06/23/17 13:59 Total Creatine Kinase 56 units/L (30-135) 06/23/17 21:59 C-Reactive Protein 9.20 mg/dL (0.00-1.30) H 06/23/17 21:59 Total Protein 8.1 g/dL (6.3-8.2) 06/23/17 13:59 Albumin 2.8 g/dL (3.9-5) L 06/23/17 13:59 Albumin/Globulin Ratio 0.5 % 06/23/17 13:59 Urine Color Yellow (Yellow) 06/23/17 23:59 Urine Turbidity Clear (Clear) 06/23/17 23:59 Urine pH 5.0 (5.0-7.0) 06/23/17 23:59 Ur Specific [place] 1.023 (1.003-1.030) 06/23/17 23:59 Urine Protein >500 mg/dL (Negative) 06/23/17 23:59 Urine Glucose (UA) >=500 mg/dL (Negative) 06/23/17 23:59 Urine Ketones Neg mg/dL (Negative) 06/23/17 23:59 Urine Blood Sm (Negative) 06/23/17 23:59 Urine Nitrite Neg (Negative) 06/23/17 23:59 Urine Bilirubin Neg (Negative) 06/23/17 23:59 Urine Urobilinogen < 2.0 mg/dL (<2.0) 06/23/17 23:59 Ur Leukocyte Esterase Neg (Negative) 06/23/17 23:59 Urine WBC (Auto) 5.0 /HPF (0.0-6.0) 06/23/17 23:59 Urine RBC (Auto) 2.0 /HPF (0.0-6.0) 06/23/17 23:59 U Epithel Cells (Auto) 3.0 /HPF (0-13.0) 06/23/17 23:59 Urine Bacteria (Auto) 4+ /HPF (Negative) 06/23/17 23:59 Urine Mucus Few /HPF 06/23/17 23:59 Vancomycin Trough 25.9 ug/mL (5.0-20.0) H 06/30/17 08:47
[2017-06-30] MEDS: LEVEMIR SUB-Q SCH (21:28)
[2017-07-01] MEDS ORDERED: VANCOMYCIN 750 MG in NACL 0.9% 250ML 250 ML IV SCH (06:00)
[2017-07-01] MEDS ORDERED: MORPHINE IV PRN (07:21)
--- NOTE | 2017-07-01 07:22 | Anesthesia Day of Surgery ---
Anesthesia Day of Surgery - Day of Surgery Patient Examined: Yes Patient H&P Reviewed: Yes Patient is NPO: Yes
--- NOTE | 2017-07-01 07:22 | Anesthesia Consultation ---
Anesthesia Consult and Med Hx Date of service: 07/01/17 - Airway Anesthetic Teeth Evaluation: Good ROM Head & Neck: Adequate Mental/Hyoid Distance: Adequate Mallampati Class: Class II Intubation Access Assessment: Probably Good - Pulmonary Exam CTA: Yes - Cardiac Exam Cardiac Exam: RRR - Pre-Operative Health Status ASA Pre-Surgery Classification: ASA3 Proposed Anesthetic Plan: MAC - Pulmonary Hx Smoking: No Hx Asthma: No COPD: No Hx Pneumonia: No Hx Sleep Apnea: No - Cardiovascular System Hx Hypertension: Yes Hx Coronary Artery Disease: No Hx Heart Attack/AMI: No Hx Angina: No Hx Peripheral Vascular Disease: No - Central Nervous System Hx Psychiatric Problems: No - Endocrine Hx End Stage Renal Disease: No Hx Non-Insulin Dependent Diabetes: Yes Hx Hypothyroidism: No - Hematic Hx Anemia: No
[2017-07-01] MEDS ORDERED: DIPRIVAN 10 MG/ML IV ONE ×2 (07:27→08:35)
[2017-07-01] MEDS ORDERED: XYLOCAINE MPF 2% ONE (07:27)
[2017-07-01] MEDS ORDERED: SUBLIMAZE ONE (07:27)
[2017-07-01] MEDS: NOVOLOG SUB-Q SCH ×3 (07:30→17:57)
[2017-07-01] MEDS ORDERED: HYDROGEN PEROXIDE ONE (07:32)
[2017-07-01] MEDS ORDERED: MARCAINE 0.25% INFILTRATI ONE ×2 (07:32→08:39)
[2017-07-01] MEDS: ZOSYN/NS 4.5GM/100ML 4.5 GM/100 ML VIAL IV SCH ×2 (07:52→16:10)
[2017-07-01] MEDS ORDERED: VERSED IV NR (08:00)
[2017-07-01] MEDS ORDERED: NACL 0.9% 1000 ML 1,000 ML IV SCH (08:00)
[2017-07-01] MEDS ORDERED: PEPCID PO NR (08:00)
[2017-07-01] MEDS ORDERED: NACL 0.9% IR ONE (08:39)
--- NOTE | 2017-07-01 09:02 | Post Operative Note ---
Pre-op diagnosis: Infected/gangrenous left 4th toe Post-op diagnosis: same Procedure: Debridement of necrotic skin, SQ and fascia - left 4th toe Anesthesia: MAC Surgeon: NGOC JACOBO Estimated blood loss: minimal Pathology: list (C&S done) Specimen disposition: to lab Condition: stable Disposition: PACU
--- NOTE | 2017-07-01 10:05 | Post Anesthesia Evaluation ---
- Post Anesthesia Evaluation Patient Participated: Yes Airway Patent: Yes Stable Respiratory Function: Yes Nausea/Vomiting: No Temp > 96.8F: Yes Pain Manageable: Yes Adequeate Hydration: Yes Anesthesia Complications: No
[2017-07-01] MEDS: ZESTRIL PO SCH (10:40)
[2017-07-01] MEDS: NORVASC PO SCH (10:41)
--- NOTE | 2017-07-01 13:26 | Progress Note ---
Assessment and Plan Patient with diabetic wound infection of left 4th toe. She underwent revascularization last week and then debridement today. She currently has no complaints and feels well overall. Both legs are warm. She will need to be on Plavix pending approval from the primary/surgical team. She will follow up with us after discharge. Subjective Date of service: 07/01/17 Principal diagnosis: diabetic food infection/osteomyelitis Interval history: Pt with diabetic foot infection s/p 4th left toe infection. Had debridement today; feels well, no acute issues. Objective - Constitutional Vitals: Vital Signs - 12hr 07/01/17 07/01/17 07/01/17 04:32 07:00 08:17 Temperature 97.6 F 98.8 F 98.8 F Pulse Rate 85 82 82 Respiratory 14 20 20 Rate Respiratory Rate [Right Foot] Blood Pressure 164/87 160/89 160/89 O2 Sat by Pulse 96 97 97 Oximetry 07/01/17 07/01/17 07/01/17 09:00 09:05 09:10 Temperature 97 F L Pulse Rate 68 71 71 Respiratory 18 18 20 Rate Respiratory Rate [Right Foot] Blood Pressure 90/58 94/61 126/70 O2 Sat by Pulse 100 100 100 Oximetry 07/01/17 07/01/17 07/01/17 09:15 10:03 10:40 Temperature 97.6 F Pulse Rate 71 75 75 Respiratory 16 18 Rate Respiratory Rate [Right Foot] Blood Pressure 133/77 150/81 150/81 O2 Sat by Pulse 100 98 Oximetry 07/01/17 07/01/17 10:41 10:42 Temperature Pulse Rate 75 Respiratory 20 Rate Respiratory 20 Rate [Right Foot] Blood Pressure 150/81 O2 Sat by Pulse Oximetry General appearance: Present: no acute distress, well-nourished - EENT Eyes: PERRL, EOM intact ENT: hearing intact, clear oral mucosa - Neck Neck: supple, normal ROM - Respiratory Respiratory effort: normal Extremities: No edema, normal temperature Extremity abnormal: other (cannot assess left foot pulses due to new post-op bandages.) - Labs CBC & Chem 7: 06/29/17 05:31 06/29/17 05:31 Labs: Abnormal lab results 06/30/17 06/30/17 07/01/17 Range/Units 16:51 21:08 05:28 POC Glucose 303 H 361 H 130 H (70-105) 12/06/17 Range/Units 12:00 POC Glucose 146 H (70-105)
[2017-07-01] MEDS ORDERED: PLAVIX PO SCH (14:00)
--- NOTE | 2017-07-01 14:41 | Progress Note ---
Assessment and Plan Assessment: 1) Sepsis: better. Etiology - left foot diabetic foot infection. CRP=9.2. 2) Left foot diabetic foot infection with 4th toe ulcer -MRI showed 4th toe osteomyelitis, myositis and cellulitis -dopplers revealed "non-hemodynamically significant stenosis of the left popliteal artery -Wound cx + MSSA and Beta hem Strep group B -S/P Debridement of necrotic skin, SQ and fascia - left 4th toe -S/P revascularization 3) DM - uncontrolled on DKA Plan: -stop contact isolation -upon discharge will do ceftin 500 mg po q12h total 10 days from today Thank you Dr Plascencia for your consultation, will follow up with you. Florencia Parekh MD Infectious Diseases Specialist [facility], [place], [facility] M [phone] O [phone] Subjective Date of service: 07/01/17 Principal diagnosis: diabetic food infection/osteomyelitis Interval history: Feels ok no fever. went to the OR Microbiology: Blood cultures: 06/23 ngtd Wound cx + MSSA and Beta hem Strep group B Current Antimicrobials: Zosyn 06/24 Vancomycin 06/23 Objective - Exam Narrative Exam: General appearance: Alert in NAD, conversant Eyes: anicteric sclerae, moist conjunctivae; no lid-lag; PERRLA HENT: Atraumatic; oropharynx clear with moist mucous membranes and no mucosal ulcerations/no oral thrush; normal hard and soft palate. Normal external ears. Neck: Trachea midline; supple, no thyromegaly or lymphadenopathy Lungs: CTA, with normal respiratory effort and no intercostal retractions CV: RRR, no murmurs Abdomen: Soft, non-tender; no masses or hepatosplenomegaly Extremities: left 4th toe discoloration, left 1st toe ulcer, fore foot erythema Skin: Normal temperature, turgor and texture; no rash, ulcers or subcutaneous nodules Psych: Appropriate affect, alert and oriented to person, place and time. Neuro: alert and oriented x 3. Moving all extermities Lines: No CVL / PICC - Constitutional Vitals: Vital Signs Temp Pulse Resp BP Pulse Ox 97.6 F 75 20 150/81 98 07/01/17 10:03 07/01/17 10:41 07/01/17 10:42 07/01/17 10:41 07/01/17 10:03 Temperature -Last 24 Hours Temperature 97.6 F Temperature 97 F Temperature 98.8 F Temperature 98.8 F Temperature 97.6 F Temperature 122.0 F Temperature 98.5 F Temperature 98.9 F - Labs CBC & Chem 7: 06/29/17 05:31 06/29/17 05:31 Labs: Abnormal lab results 06/30/17 06/30/17 07/01/17 Range/Units 16:51 21:08 05:28 POC Glucose 303 H 361 H 130 H (70-105) 07/01/17 Range/Units 12:00 POC Glucose 146 H (70-105)
--- NOTE | 2017-07-01 16:13 | Discharge Summary ---
Providers - Providers Date of Admission: 06/23/17 23:55 Date of discharge: 07/01/17 Attending physician: JANINE KELLEY 06/24/17 08:21 Consult to Physician [CONS] Routine Consulting Provider: YARED GALINDO Reason For Exam: left foot cellulitis Place consult to:: dr. randolph Notified:: Phone number called:: [phone] Was contact made?: Yes If yes, spoke with:: dr. randolph Time called:: 08:36 06/24/17 15:03 Consult to Physician [CONS] Routine Consulting Provider: VENKATESH VARELA Reason For Exam: left 4th toe osteomylitis Place consult to:: dr. varela Notified:: Phone number called:: [phone] Was contact made?: No Time called:: 17:37 Comment:: left message 06/25/17 15:48 Consult to Wound/ET Nurse [CONS] Routine Reason For Exam: wound eval 06/26/17 12:55 Consult to Physician [CONS] Routine Consulting Provider: NGOC TORRES Reason For Exam: left foot cellulitis Place consult to:: dr. torres Notified:: office Phone number called:: Was contact made?: Yes If yes, spoke with:: shaniqua Time called:: 13:22 06/26/17 15:39 Consult to Physician [CONS] Routine Consulting Provider: HALLIE CARD Reason For Exam: left 4th toe wet gangrene Place consult to:: dr. 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 She has a history of picking off, plucking of her toenails. She's had previous infections in her right foot., She admits that she plucked off all the toenails in her left foot. And over the course of 2 weeks she developed swelling redness in her left foot Sepsis Continue sepsis protocol Accelerated hypertension Optimize blood pressure medications Osteomyelitis of left fourth toe Continue IV antibiotics, will need surgical debridement versus amputation Case discussed with infectious disease eap consultant patient does problem here is Jared that he is having is because Jared is using a third democrat nts will need 6 to 8 weeks of IV abx Left fourth toe wet gangrene/PAD Case discussed with vascular surgery Arterial duplex shows stenosis of left popliteal artery for angioplasty today Metabolic acidosis Treat sepsis, supportive care, IVF, Uncontrolled diabetes/type II Continue insulins, optimize them DVT prophylaxis Current Visit: Yes Status: Acute "per Infectious Disease, Dr. Randolph: 1) Sepsis: better. Etiology - left foot diabetic foot infection. CRP=9.2. 2) Left foot diabetic foot infection with 4th toe ulcer -MRI showed 4th toe osteomyelitis, myositis and cellulitis -dopplers revealed "non-hemodynamically significant stenosis of the left popliteal artery -Wound cx + MSSA and Beta hem Strep group B -S/P Debridement of necrotic skin, SQ and fascia - left 4th toe -S/P revascularization 3) DM - uncontrolled on DKA Plan: -stop contact isolation -upon discharge will do ceftin 500 mg po q12h total 10 days from today Thank you Dr Plascencia for your consultation, will follow up with you." per Vascular/IR, Dr. Card: Patient with diabetic wound infection of left 4th toe. She underwent revascularization last week and then debridement today. She currently has no complaints and feels well overall. Both legs are warm. She will need to be on Plavix pending approval from the primary/surgical team. She will follow up with us after discharge. Addendum entered and electronically signed by NGOC TORRES MD 07/01/17 09: 11: Pt can be discharged from my perspective with f/u in the [facility] in one week. Original Note: Pre-op diagnosis: Infected/gangrenous left 4th toe Post-op diagnosis: same Procedure: Debridement of necrotic skin, SQ and fascia - left 4th toe Anesthesia: MAC Surgeon: NGOC TORRES Estimated blood loss: minimal Pathology: list (C&S done) Specimen disposition: to lab Condition: stable Disposition: PACU Disposition: TO HOME OR SELFCARE Time spent for discharge: 35 minutes Core Measure Documentation - Palliative Care Palliative Care/ Comfort Measures: Not Applicable - Core Measures Any of the following diagnoses?: none - VTE Discharge Requirements Deep Vein Thrombosis/Pulmonary Embolism Present on Admission: No Has pt received <5 days of overlap therapy or INR<2.0: No Anticoagulant overlap therapy prescribed at discharge: No Contraindication No Overlap Therapy order at DC: Not Indicated Exam - Constitutional Vitals: Temp Pulse Resp BP Pulse Ox 97.6 F 75 20 150/81 98 07/01/17 10:03 07/01/17 10:41 07/01/17 10:42 07/01/17 10:41 07/01/17 10:03 General appearance: Present: no acute distress - EENT Eyes: Present: PERRL, EOM intact ENT: hearing intact - Neck Neck: Present: supple, normal ROM - Respiratory Respiratory effort: normal Respiratory: bilateral: CTA - Cardiovascular Rhythm: regular Heart Sounds: Present: S1 & S2 - Extremities Extremities: Full ROM Extremity abnormal: pulses diminished - Abdominal General gastrointestinal: Present: soft, non-tender, non-distended, normal bowel sounds - Musculoskeletal Musculoskeletal: strength equal bilaterally - Psychiatric Psychiatric: appropriate mood/affect - Neurologic Neurologic: CNII-XII intact, moves all extremities - Allied Health Allied health notes reviewed: nursing, case management Plan Activity: other (no strenous activity until cleared by pcp) Diet: low salt Special Instructions: record blood sugar diary Follow up with: PRIMARY CAREMD [Primary Care Provider] - 3-5 Days Prescriptions: Cefuroxime [Ceftin] 500 mg PO Q12H #10 day
[2017-07-01 17:55] VITALS: BP 137/81
== END 2017-07-01 19:59 | disposition home or self-care (01) | DRG 853 ==
LOC: ED 13:28 → CC1 23:55 → 3A 06-24 02:04
PROVIDERS: ADMIT Internal Medicine; ATTEND Internal Medicine
PROC: 047Q3Z1 Dilation of Left Anterior Tibial Artery using Drug-Coated Balloon, Percutaneous Approach (ICD-10-PCS; principal; 2017-06-29)
PROC: 047S3ZZ Dilation of Left Posterior Tibial Artery, Percutaneous Approach (ICD-10-PCS; 2017-06-29)
PROC: 0JBR0ZZ Excision of Left Foot Subcutaneous Tissue and Fascia, Open Approach (ICD-10-PCS; 2017-07-01)
DX: A41.9 Sepsis, unspecified organism (principal); E11.10 Type 2 diabetes mellitus with ketoacidosis without coma; L03.116 Cellulitis of left lower limb; M86.8X7 Other osteomyelitis, ankle and foot; E11.52 Type 2 diabetes mellitus with diabetic peripheral angiopathy with gangrene; I70.262 Atherosclerosis of native arteries of extremities with gangrene, left leg; I16.0 Hypertensive urgency; E11.65 Type 2 diabetes mellitus with hyperglycemia; E11.69 Type 2 diabetes mellitus with other specified complication; I10 Essential (primary) hypertension; E11.621 Type 2 diabetes mellitus with foot ulcer; L97.529 Non-pressure chronic ulcer of other part of left foot with unspecified severity; M60.9 Myositis, unspecified; Z83.3 Family history of diabetes mellitus; Z82.49 Family history of ischemic heart disease and other diseases of the circulatory system
CPT/HCPCS: 36415; 37228; 37232; 75710; 80048; 80053; 80202; 81001; 82140; 82550; 82805; 82962; 83735; 84100; 85025; 85610; 85652; 85730; 86140; 87040; 87075; 87076; 87116; 87186; 99291; A9577; C1725; C1760; C1769; C1887; C2623; J0690; J1170; J1644; J1815; J1818; J2250; J2543; J2704; J3010; J3370; J7030; J7040; J7050; Q9967

== ENCOUNTER 2017-07-03 10:04 | Outpatient (CLI) | payer OTHER ==
[2017-07-03] MEDS ORDERED: XYLOCAINE TOPICAL 4% TP ONE ×2 (10:37→15:07)
[2017-07-03] MEDS ORDERED: AD OINTMENT TP ONE (10:52)
[2017-07-04] MEDS ORDERED: AD OINTMENT TP SCH (10:00)
== END 2017-07-03 10:05 | disposition home or self-care (01) ==
LOC: WOUND 10:04
PROVIDERS: ATTEND Podiatrist
DX: E11.621 Type 2 diabetes mellitus with foot ulcer (principal); L97.522 Non-pressure chronic ulcer of other part of left foot with fat layer exposed; E11.69 Type 2 diabetes mellitus with other specified complication; M86.172 Other acute osteomyelitis, left ankle and foot; F32.9 Major depressive disorder, single episode, unspecified; F41.8 Other specified anxiety disorders
CPT/HCPCS: 11042; 82962; G0463; A6250

== ENCOUNTER 2017-07-28 11:16 | Emergency (ER) | payer SELFPAY ==
[2017-07-28] MEDS ORDERED: ZOFRAN ODT ONE (12:08)
[2017-07-28] MEDS ORDERED: ZOFRAN ODT PO ONE (12:10)
[2017-07-28 12:16] LABS: Basophils # (Auto) 0.1 K/mm3 (0.0-0.1); Basophils % (Auto) 1.1 % (0.0-1.8); Eosinophils # (Auto) 0.4 K/mm3 (0.0-0.4); Hematocrit 40.7 % (30.3-42.9); Hemoglobin 13.2 gm/dl (10.1-14.3); Lymphocytes # (Auto) 2.2 K/mm3 (1.2-5.4); Lymphocytes % (Auto) 23.3 % (13.4-35.0); Mean Corpuscular HGB Conc 32 % (30-34); Mean Corpuscular Hemoglobin 27 pg (28-32); Mean Corpuscular Volume 83 fl (79-97); Monocytes # (Auto) 0.5 K/mm3 (0.0-0.8); Monocytes % (Auto) 5.4 % (0.0-7.3); Platelet Count 503 K/mm3 (140-440); Red Blood Count 4.91 M/mm3 (3.65-5.03)
[2017-07-28 12:27] LABS: Alanine Aminotransferase 19 units/L (7-56); Albumin 3.5 g/dL (3.9-5); BUN/Creatinine Ratio 23; Blood Urea Nitrogen 18 mg/dL (7-17); Calcium 9.4 mg/dL (8.4-10.2); Hemolysis Index 7
--- NOTE | 2017-07-28 12:58 | Cat Scan Report ---
CT HEAD WITHOUT CONTRAST: HISTORY: Headache, dizziness, weakness. TECHNIQUE: Sequential 2.5mm CT images. COMPARISON: none. FINDINGS: Cerebral Parenchyma: Within normal limits. Cerebellum: Within normal limits. Brainstem: Within normal limits. Ventricles: Normal. Sella: Normal. Extra-axial spaces: Normal. Basal Cisterns: Normal. Intracranial Hemorrhage: None. Midline Shift: None. Calvarium: Normal. Sinuses: Normal. Mastoid Air Cells: Normal. Visualized Orbits: Normal. IMPRESSION: Cranial CT scan within normal limits.
[2017-07-28 13:39] LABS: Bacteria,Urine 1+ /HPF (Negative); Bilirubin,Urine NEG (Negative); Blood,Urine SM (Negative); Color,Urine Straw (Yellow); Nitrite,Urine NEG (Negative); Urobilinogen,Urine < 2.0 mg/dL (<2.0)
[2017-07-28 13:40] LABS: Protein,Urine >500 mg/dL (Negative)
[2017-07-29] MEDS ORDERED: MORPHINE IV ONE (02:19)
[2017-07-29] MEDS ORDERED: ZOFRAN IV ONE (02:19)
--- NOTE | 2017-07-29 02:26 | Emergency Department Report ---
HPI - General Chief Complaint: Nausea/Vomiting/Diarrhea Time Seen by Provider: 07/29/17 02:10 - HPI HPI: Room 8 The patient is a 56-year-old female presenting with a chief complaint of headache nausea vomiting. Patient states her symptoms began yesterday morning with nausea vomiting and left sided headache patient denies any history of fever or trauma. Patient denies any pain elsewhere besides her head. The patient states she has not taken her blood pressure medication yesterday or today. Patient currently gives her pain a score of 5/10 Location: Head Duration: Constant since yesterday Quality: Pain Severity:5/10 Modifying factors: [see above] Context: [see above] Mode of transportation: [not driving] ED Past Medical Hx - Past Medical History Hx Hypertension: Yes Hx Diabetes: Yes - Surgical History Additional Surgical History: - Family History Family history: no significant - Social History Smoking Status: Never Smoker Substance Use Type: None - Medications Home Medications: Home Medications Medication Instructions Recorded Confirmed Last Taken Type Enalapril Maleate [Vasotec] 10 mg PO QDAY 10/15/13 06/23/17 10/15/13 History Gabapentin 300 mg PO QHS 10/15/13 06/23/17 10/15/13 History glipiZIDE [Glucotrol] 5 mg PO DAILY 10/15/13 06/23/17 10/15/13 History metFORMIN [Glucophage] 500 mg PO BID 10/15/13 06/23/17 10/15/13 History Escitalopram Oxalate [Lexapro] 5 mg PO QDAY 06/23/17 06/23/17 Unknown History Cefuroxime [Ceftin] 500 mg PO Q12H #10 day 07/01/17 Unknown Rx Butalb/Acetamin/Caff 50-325-40 2 tab PO Q8HR PRN #10 tablet 07/29/17 Unknown Rx [Fioricet] Promethazine [Phenergan TAB] 25 mg PO Q6HR PRN #20 tab 07/29/17 Unknown Rx Promethazine [Phenergan] 25 mg LA Q6HR PRN #5 supp.rect 07/29/17 Unknown Rx ED Review of Systems ROS: Stated complaint: NAUSEA/VOMITING Other details as noted in HPI Constitutional: denies: fever Eyes: denies: eye pain ENT: denies: throat pain Cardiovascular: denies: chest pain Gastrointestinal: nausea, vomiting. denies: abdominal pain Genitourinary: denies: dysuria Musculoskeletal: denies: back pain Neurological: headache Physical Exam - Physical Exam Vital Signs: Vital Signs 07/28/17 07/28/17 11:36 22:17 Temperature 98 F 98.4 F Pulse Rate 110 H 103 H Respiratory 18 18 Rate Blood Pressure 196/115 181/107 O2 Sat by Pulse 100 99 Oximetry Physical Exam: GENERAL: The patient is well-developed well-nourished female lying on stretcher not appearing to be in acute distress. [] HEENT: Normocephalic. Atraumatic. Extraocular motions are intact. Patient has moist mucous membranes. No tenderness to palpation of the left temporal artery NECK: Supple. No meningitic signs are noted. There is no adenopathy noted. CHEST/LUNGS: Clear to auscultation. There is no respiratory distress noted. HEART/CARDIOVASCULAR: Regular. There is no tachycardia. There is no gallop rub or murmur. ABDOMEN: Abdomen is soft, nontender. Patient has normal bowel sounds. There is no abdominal distention. SKIN: There is no rash. There is no edema. There is no diaphoresis. NEURO: The patient is awake, alert, and oriented. The patient is cooperative. The patient has no focal neurologic deficits. The patient has normal speech. Cranial nerves II through XII grossly intact, no drift MUSCULOSKELETAL: There is no evidence of acute injury. ED Course Vital Signs 07/28/17 07/28/17 11:36 22:17 Temperature 98 F 98.4 F Pulse Rate 110 H 103 H Respiratory 18 18 Rate Blood Pressure 196/115 181/107 O2 Sat by Pulse 100 99 Oximetry ED Medical Decision Making - Lab Data Result diagrams: 07/28/17 11:52 07/28/17 11:52 Laboratory Tests 07/28/17 07/28/17 07/28/17 11:25 11:52 11:52 WBC 9.2 RBC 4.91 Hgb 13.2 Hct 40.7 MCV 83 MCH 27 L MCHC 32 RDW 16.0 H Plt Count 503 H Lymph % (Auto) 23.3 Coal % (Auto) 5.4 Eos % (Auto) 4.0 Baso % (Auto) 1.1 Lymph # 2.2 Coal # 0.5 Eos # 0.4 Baso # 0.1 Seg Neutrophils % 66.2 Seg Neutrophils # 6.1 Sodium 139 Potassium 3.9 Chloride 98.3 Carbon Dioxide 26 Anion Gap 19 BUN 18 H Creatinine 0.8 Estimated GFR > 60 BUN/Creatinine Ratio 23 Glucose 183 H POC Glucose 165 H Calcium 9.4 Total Bilirubin 0.20 AST 17 ALT 19 Alkaline Phosphatase 97 Total Protein 7.2 Albumin 3.5 L Albumin/Globulin Ratio 0.9 Urine Color Urine Turbidity Urine pH Ur Specific [place] Urine Protein Urine Glucose (UA) Urine Ketones Urine Blood Urine Nitrite Urine Bilirubin Urine Urobilinogen Ur Leukocyte Esterase Urine WBC (Auto) Urine RBC (Auto) U Epithel Cells (Auto) Urine Bacteria (Auto) 07/28/17 Unknown WBC RBC Hgb Hct MCV MCH MCHC RDW Plt Count Lymph % (Auto) Coal % (Auto) Eos % (Auto) Baso % (Auto) Lymph # Coal # Eos # Baso # Seg Neutrophils % Seg Neutrophils # Sodium Potassium Chloride Carbon Dioxide Anion Gap BUN Creatinine Estimated GFR BUN/Creatinine Ratio Glucose POC Glucose Calcium Total Bilirubin AST ALT Alkaline Phosphatase Total Protein Albumin Albumin/Globulin Ratio Urine Color Straw Urine Turbidity Clear Urine pH 7.0 Ur Specific [place] 1.008 Urine Protein >500 Urine Glucose (UA) 150 Urine Ketones Neg Urine Blood Sm Urine Nitrite Neg Urine Bilirubin Neg Urine Urobilinogen < 2.0 Ur Leukocyte Esterase Sm Urine WBC (Auto) 5.0 Urine RBC (Auto) 4.0 U Epithel Cells (Auto) 2.0 Urine Bacteria (Auto) 1+ - Radiology Data Radiology results: report reviewed (CT head), image reviewed (CT head) CT HEAD WITHOUT CONTRAST: HISTORY: Headache, dizziness, weakness. TECHNIQUE: Sequential 2.5mm CT images. COMPARISON: none. FINDINGS: Cerebral Parenchyma: Within normal limits. Cerebellum: Within normal limits. Brainstem: Within normal limits. Ventricles: Normal. Sella: Normal. Extra-axial spaces: Normal. Basal Cisterns: Normal. Intracranial Hemorrhage: None. Midline Shift: None. Calvarium: Normal. Sinuses: Normal. Mastoid Air Cells: Normal. Visualized Orbits: Normal. IMPRESSION: Cranial CT scan within normal limits. Transcribed By: TTR Dictated By: NICKI BERNABE JR, MD Electronically Authenticated By: NICKI BERNABE JR, MD Signed Date/Time: 07/28/17 1253 DD/ 1253 TD/TT: 07/28/17 1253 - Differential Diagnosis hypertensive urgency, temporal arteritis, migraine, ICH Critical care attestation.: If time is entered above; I have spent that time in minutes in the direct care of this critically ill patient, excluding procedure time. ED Disposition Clinical Impression: Hypertensive urgency, Headache Disposition: TO HOME OR SELFCARE Is pt being admited?: No Does the pt Need Aspirin: No Condition: Stable Instructions: Hypertension (ED) Additional Instructions: Return to the emergency department immediately should you develop worsening symptoms, fever, inability to tolerate food or liquid or any other concerns. Prescriptions: Butalb/Acetamin/Caff 50-325-40 [Fioricet] 2 tab PO Q8HR PRN #10 tablet PRN Reason: Headache Promethazine [Phenergan TAB] 25 mg PO Q6HR PRN #20 tab PRN Reason: Nausea Promethazine [Phenergan] 25 mg LA Q6HR PRN #5 supp.rect PRN Reason: Vomiting Referrals: PRIMARY CARE, [Primary Care Provider] - 3-5 Days Time of Disposition: 03:29
[2017-07-29] MEDS ORDERED: CATAPRES PO ONE (03:08)
[2017-07-29 04:41] VITALS: BP 155/90
== END 2017-07-29 04:45 | disposition home or self-care (01) ==
LOC: ED 11:16
DX: R51 Headache (principal); I10 Essential (primary) hypertension; R11.2 Nausea with vomiting, unspecified; E11.9 Type 2 diabetes mellitus without complications
CPT/HCPCS: 36415; 70450; 80053; 81001; 82962; 85025; 96374; 96375; 99284; J2270; J2405; Q0162

== ENCOUNTER 2017-12-16 06:57 | Emergency (ER) | payer SELFPAY ==
[2017-12-16 07:04] VITALS: BP 115/81
[2017-12-16] MEDS ORDERED: TESSALON PERLES PO ONE (07:17)
--- NOTE | 2017-12-16 07:31 | Emergency Department Report ---
- General Chief Complaint: Upper Respiratory Infection Stated Complaint: COUGHING, COLD SX Time Seen by Provider: 12/16/17 07:18 Source: patient Mode of arrival: Ambulatory Limitations: No Limitations - History of Present Illness Initial Comments: This is a 57-year-old female nontoxic, well nourished in appearance, no acute signs of distress presents to the ED with c/o of nonproductive cough, rhinorrhea , and nasal congestion x1 month denies any sick contact. Patient stated has history of pollen allergies and has been outside. Patient has been taking Robitussin with no relief. Patient describes cough as dry and nonproductive.. Patient denies any recent travels, long car, recent hospital stays. Patient denies any calf pain or calf tenderness. Patient denies any chest pain, short of breath, fever, chills, nausea, vomiting, hemoptysis, numbness, tingling, headache or stiff neck. Patient denies any allergies. PMH includes DM and HTN. MD Complaint: cough, rhinorrhea, nasal congestion -: month(s) (1) Severity: mild Consistency: constant Improves With: nothing Worsens With: nothing Associated Symptoms: rhinorrhea, nasal congestion, cough. denies: fever, chills , myalgias, diaphoresis, headache, sore throat, stiff neck, chest pain, shortness of breath, abdominal pain, nausea, vomiting, diarrhea, dysuria, rash, confusion, right sweats, weight loss, epistaxis, hoarseness, ear pain Treatments Prior to Arrival: none - Related Data Home Medications Medication Instructions Recorded Confirmed Last Taken Enalapril Maleate [Vasotec] 10 mg PO QDAY 10/15/13 06/23/17 10/15/13 Gabapentin 300 mg PO QHS 10/15/13 06/23/17 10/15/13 glipiZIDE [Glucotrol] 5 mg PO DAILY 10/15/13 06/23/17 10/15/13 metFORMIN [Glucophage] 500 mg PO BID 10/15/13 06/23/17 10/15/13 Escitalopram Oxalate [Lexapro] 5 mg PO QDAY 06/23/17 06/23/17 Unknown Previous Rx's Medication Instructions Recorded Last Taken Type Cefuroxime [Ceftin] 500 mg PO Q12H #10 day 07/01/17 Unknown Rx Butalb/Acetamin/Caff 50-325-40 2 tab PO Q8HR PRN #10 tablet 07/29/17 Unknown Rx [Fioricet] Meclizine [Antivert] 25 mg PO TID PRN #20 tablet 07/29/17 Unknown Rx Promethazine [Phenergan TAB] 25 mg PO Q6HR PRN #20 tab 07/29/17 Unknown Rx Promethazine [Phenergan] 25 mg DC Q6HR PRN #5 supp.rect 07/29/17 Unknown Rx Benzonatate [Tessalon Perle] 100 mg PO Q8H PRN #30 capsule 12/16/17 Unknown Rx Fluticasone [Flonase] 1 spray NS QDAY #1 bottle 12/16/17 Unknown Rx Loratadine [Claritin] 10 mg PO DAILY #30 tablet 12/16/17 Unknown Rx Prednisone [predniSONE 10 mg 10 mg PO .TAPER #1 tab.ds.pk 12/16/17 Unknown Rx (6-Day Pack, 21 Tabs)] Allergies Allergy/AdvReac Type Severity Reaction Status Date / Time No Known Allergies Allergy Verified 12/16/17 07:13 ED Review of Systems ROS: Stated complaint: COUGHING, COLD SX Other details as noted in HPI Constitutional: denies: chills, fever Eyes: denies: eye pain, eye discharge, vision change ENT: denies: ear pain, throat pain Respiratory: cough. denies: shortness of breath, wheezing Cardiovascular: denies: chest pain, palpitations Endocrine: no symptoms reported Gastrointestinal: denies: abdominal pain, nausea, diarrhea Genitourinary: denies: urgency, dysuria, discharge Musculoskeletal: denies: back pain, joint swelling, arthralgia Skin: denies: rash, lesions Neurological: denies: headache, weakness, paresthesias Psychiatric: denies: anxiety, depression Hematological/Lymphatic: denies: easy bleeding, easy bruising ED Past Medical Hx - Past Medical History Hx Hypertension: Yes Hx Heart Attack/AMI: No Hx Congestive Heart Failure: No Hx Diabetes: Yes Hx Arthritis: No Hx Asthma: No Hx COPD: No - Surgical History Hx Coronary Stent: No Hx Open Heart Surgery: No Additional Surgical History: - Social History Smoking Status: Never Smoker Substance Use Type: None - Medications Home Medications: Home Medications Medication Instructions Recorded Confirmed Last Taken Type Enalapril Maleate [Vasotec] 10 mg PO QDAY 10/15/13 06/23/17 10/15/13 History Gabapentin 300 mg PO QHS 10/15/13 06/23/17 10/15/13 History glipiZIDE [Glucotrol] 5 mg PO DAILY 10/15/13 06/23/17 10/15/13 History metFORMIN [Glucophage] 500 mg PO BID 10/15/13 06/23/17 10/15/13 History Escitalopram Oxalate [Lexapro] 5 mg PO QDAY 06/23/17 06/23/17 Unknown History Cefuroxime [Ceftin] 500 mg PO Q12H #10 day 07/01/17 Unknown Rx Butalb/Acetamin/Caff 50-325-40 2 tab PO Q8HR PRN #10 tablet 07/29/17 Unknown Rx [Fioricet] Meclizine [Antivert] 25 mg PO TID PRN #20 tablet 07/29/17 Unknown Rx Promethazine [Phenergan TAB] 25 mg PO Q6HR PRN #20 tab 07/29/17 Unknown Rx Promethazine [Phenergan] 25 mg DC Q6HR PRN #5 supp.rect 07/29/17 Unknown Rx Benzonatate [Tessalon Perle] 100 mg PO Q8H PRN #30 capsule 12/16/17 Unknown Rx Fluticasone [Flonase] 1 spray NS QDAY #1 bottle 12/16/17 Unknown Rx Loratadine [Claritin] 10 mg PO DAILY #30 tablet 12/16/17 Unknown Rx Prednisone [predniSONE 10 mg 10 mg PO .TAPER #1 tab.ds.pk 12/16/17 Unknown Rx (6-Day Pack, 21 Tabs)] ED Physical Exam - General Limitations: No Limitations General appearance: alert, in no apparent distress - Head Head exam: Present: atraumatic, normocephalic - Eye Eye exam: Present: normal appearance Pupils: Present: normal accommodation - ENT ENT exam: Present: normal exam, normal orophraynx, mucous membranes moist, TM's normal bilaterally, normal external ear exam - Neck Neck exam: Present: normal inspection, full ROM. Absent: tenderness, meningismus, lymphadenopathy - Respiratory Respiratory exam: Present: normal lung sounds bilaterally. Absent: respiratory distress, wheezes, rales, rhonchi, stridor, chest wall tenderness, accessory muscle use, decreased breath sounds, prolonged expiratory - Cardiovascular Cardiovascular Exam: Present: regular rate, normal rhythm, normal heart sounds. Absent: irregular rhythm, systolic murmur, diastolic murmur, rubs, gallop - GI/Abdominal GI/Abdominal exam: Present: soft, normal bowel sounds. Absent: distended, tenderness, guarding, rebound, rigid, diminished bowel sounds - Rectal Rectal exam: Present: deferred - Extremities Exam Extremities exam: Present: normal inspection, full ROM, normal capillary refill - Back Exam Back exam: Present: normal inspection, full ROM. Absent: tenderness, CVA tenderness (R), CVA tenderness (L), paraspinal tenderness, vertebral tenderness - Neurological Exam Neurological exam: Present: alert, oriented X3, normal gait - Psychiatric Psychiatric exam: Present: normal affect, normal mood - Skin Skin exam: Present: warm, dry, intact, normal color. Absent: rash ED Course Vital Signs 12/16/17 12/16/17 06:58 07:13 Temperature 97.8 F 97.8 F Pulse Rate 95 H 99 H Respiratory 20 20 Rate Blood Pressure 115/81 115/81 O2 Sat by Pulse 98 98 Oximetry - Reevaluation(s) Reevaluation #1: 12/16/17 07:50 Patient is speaking in full sentences with no signs of distress noted. ED Medical Decision Making - Medical Decision Making This is a 57-year-old female that presents with bronchitis. Patient is stable and was examined by me. Chest x-ray has been obtained and dictated by radiologist with normal exam and with pulmonary venous structure. Patient is notified of x-ray results with no questions noted. Patient is discharged with prednisone, Claritin, Flonase and Tessalon Perles. Patient received tesslone perrls in the ED which patient stated symptoms has subsided and resolved. Vitals stable. Patient is nonfebrile and normal heart rate. Patient was instructed Follow-up with a primary care/deli associate doctor in 3-5 days or if symptoms worsen and continue return to emergency room as soon as possible. At time time of discharge, the patient does not seem toxic or ill in appearance. No acute signs of distress noted. Patient agrees to discharge treatment plan of care. No further questions noted by the patient. Critical care attestation.: If time is entered above; I have spent that time in minutes in the direct care of this critically ill patient, excluding procedure time. ED Disposition Clinical Impression: Acute bronchitis Qualifiers: Bronchitis organism: unspecified organism Qualified Code(s): J20.9 - Acute bronchitis, unspecified Disposition: DC-01 TO HOME OR SELFCARE Is pt being admited?: No Does the pt Need Aspirin: No Condition: Stable Instructions: Benzonatate (By mouth), Prednisone (By mouth), Fluticasone (Into the nose), Acute Bronchitis (ED) Additional Instructions: Follow-up with a primary care/deli associate for your abnormal chest xray doctor in 3-5 days or if symptoms worsen and continue return to emergency room as soon as possible. Prescriptions: Benzonatate [Tessalon Perle] 100 mg PO Q8H PRN #30 capsule PRN Reason: Cough Fluticasone [Flonase] 1 spray NS QDAY #1 bottle Loratadine [Claritin] 10 mg PO DAILY #30 tablet Prednisone [predniSONE 10 mg (6-Day Pack, 21 Tabs)] 10 mg PO .TAPER #1 tab.ds.pk Referrals: PRIMARY CARE, [Primary Care Provider] - 3-5 Days FRANNIE FULTON MD [Staff Physician] - 3-5 Days [facility] [Outside] - 3-5 Days [facility] [Outside] - 3-5 Days Forms: Work/School Release Form(ED) Print Language: YAKUT
--- NOTE | 2017-12-16 08:11 | XRay Report ---
ROUTINE CHEST, TWO VIEWS: HISTORY: Cough. No comparison. Heart size and pulmonary venous structures appear borderline. The lungs are clear. No evidence for pneumonia, CHF or pneumothorax. The bony structures are within normal limits. IMPRESSION: Borderline heart size and pulmonary venous structures. No CHF.
== END 2017-12-16 09:03 | disposition home or self-care (01) ==
LOC: ED 06:57
DX: J20.9 Acute bronchitis, unspecified (principal); I10 Essential (primary) hypertension; E11.9 Type 2 diabetes mellitus without complications
CPT/HCPCS: 71046